=== PATIENT | female | born 1955 | race Caucasian/White ===

== ENCOUNTER → 2017-03-07 | Outpatient (CLI) | payer OTHER, MEDICARE ==
[~2017-03-07] MED LIST: ATOR-24 PO; CHOL1000 PO; CYAN10002 IM; HYDR-3983 PO; LEVO137T3 PO; LEVO150T PO; MAGN400T6 PO; NIAC500T7 PO; PANT40TA PO; SENNTAB23 PO; SERT-234 PO
[2017-03-07 13:58] VITALS: BP 117/70; PULSE 85; TEMP 37; O2SAT 96
--- NOTE | 2017-03-07 16:20 | Radiation Oncology Follow-Up ---
Radiation Oncology Follow-Up Date of Visit Mar 07, 2017. Reason For Visit Annual follow-up Radiation Completion Date finished 03-16-2013 Diagnosis (1) Infiltrating ductal carcinoma of breast Status: Resolved Onset Date: 12/14/2010 Permanent Comment: Abnormal left breast mammogram Biopsy positive for atypical epithelial cells suspicious for adenocarcinoma Status post left modified radical mastectomy and sentinel lymph node biopsy revealing ductal carcinoma 11/01/2010 Stage [id number] Dipti receptor negative, progesterone receptor negative, HER-2/nay negative Patient declined chemotherapy. She was caring for her elderly father. Chest wall recurrence status post excision 03/16/2012, metastatic carcinoma Systemic chemotherapy Development of chest wall recurrence while under chemotherapy Status post completion of radiation therapy 03/16/2013 received 6660 cGy Last Edited By: Alysha Cazares on Dec 09, 2014 10:44 Interim History She's been doing well over this past year. She has noticed no changes of the chest wall. She is found no masses and has no discomfort. There are no changes of the axilla. She has had no swelling of her arm. She is up-to-date on mammography for the unaffected breast. She is also had recheck CT scans of the chest abdomen and pelvis. She has noted no bone discomfort. She has ongoing pain issues of her back and legs. She is getting injections every 4 months through a pain clinic. Her appetite is good and she has had a 10 pound weight gain over this past year. Allergies Coded Allergies: No Known Allergies (Unverified , `, 01/15/15) Home Medications Scheduled Atorvastatin (Lipitor), 40 MG PO QAM Cholecalciferol (Vitamin D3), 1 TAB PO QAM Cyanocobalamin (Vitamin B-12 Inj), 1,000 MCG IM MONTHLY Levothyroxine Sodium (Levothyroxine Sodium), 137 MCG PO DAILY Magnesium Oxide (Mag-Ox), 400 MG PO QAM Niacinamide (Niacin), 500 MG PO HS Pantoprazole (Protonix), 40 MG PO QAM Sertraline (Zoloft), 100 MG PO QAM Review of Systems Gastrointestinal: Symptoms: WNL Oral: Symptoms: No Problems Respiratory: Symptoms: Moist Cough, SOB With Exertion Urinary: Symptoms: Incontinence, Frequency Comments: stress incontinence , denies pain or burning Skin: Symptoms: No Problems Other Skin Symptoms: " dry " Breast: Right Upper Arm Measurement: 34.0 Right Mid Arm Measurement: 27.0 Right Wrist Measurement: 17.4 Left Upper Arm Measurement: 33.0 Left Mid Arm Measurement: 27.0 Left Wrist Measurement: 18.3 Arm Dominence: Right Cosmetic Comments: N/ A was treated to the chest wall Physical Exam Vital Signs Date Time Temp Pulse Resp B/P (MAP) Pulse Ox O2 Delivery O2 Flow Rate FiO2 03/07/17 13:58 37.0 85 20 117/70 96 Fatigue: None General Appearance: no apparent distress Eyes: normal inspection, EOMI ENT: normal ENT inspection, hearing grossly normal Neck: no adenopathy, thyroid normal Respiratory/Chest: lungs clear, no respiratory distress, no accessory muscle use Breast: Breast examination reveals status post mastectomy on the left. There no masses or tenderness and no axillary adenopathy. There is no telangiectasia. Using the [place] score cosmesis she has a a fair outcome. Right breast showed no masses or tenderness no axillary adenopathy. Cardiovascular: regular rate, rhythm, no gallop, + systolic murmur (2/6 systolic murmur) Abdomen: non tender Extremities: no pedal edema Neurologic/Psychiatric: no motor/sensory deficits, alert, normal mood/affect Skin: warm/dry Pain Management Patient Reports Pain: Yes Side: Bilateral Pain Location: back and legs Patient Preferred Pain Scale: 0 - 10 Initial Pain Intensity: 5.5 Pain Management Plan She has chronic pain and is seen pain management and gets back injections. Laboratory Laboratory Results: not applicable Pathology Pathology Results: not applicable Imaging Imaging Studies: were reviewed, and pertinent findings noted below Imaging Comments She had CT of the chest abdomen and pelvis 01/11/2017 at [facility]. Impression is no acute process and no evidence of metastatic disease. Stable postsurgical changes of the left mastectomy. Hepatic steatosis. Exophytic uterine fibroids. She had a mammogram of the right breast. Which showed no evidence of malignancy BI-RADS Category 2. This was performed on 01/11/2017. She also had a chest CT which showed no metastatic disease. Assessment & Plan Plan: The CAT scans and mammogram were all reviewed. She is aware of the findings. We discussed the steatosis of the liver. She will try to do better with weight control. She'll continue regular follow-up with medical oncology and her primary care physician. We asked her to return to our office in 1 year. She may call if she has any questions or concerns in the interim. Total Time In Follow-Up I spent 20 minutes speaking to the patient performing examination. I spent 15 minutes reviewing information in completing this note. Copy To Jose Valero M.D.; Nadir Williamson D.O. Problem Qualifiers (1) Infiltrating ductal carcinoma of breast: Laterality: left Qualified Codes: C50.912 - Malignant neoplasm of unspecified site of left female breast
== END | disposition home or self-care (01) ==
LOC: C.ONC 13:40
PROVIDERS: ATTEND Physician Assistant Medical
DX: Z08 Encounter for follow-up examination after completed treatment for malignant neoplasm (principal); Z92.3 Personal history of irradiation; Z85.3 Personal history of malignant neoplasm of breast

== ENCOUNTER 2023-03-12 08:25 | Inpatient (IN) ==
--- NOTE | 2023-03-06 11:21 | Anesthesiology Consultation ---
Date of Service March 06, 2023 Assessment & Plan (1) Encounter for pre-operative examination: Plan - awaiting surgeon ordered testing, patient plans to have these completed at [facility] tomorrow per Kiara with surgeon's office. - left arm restriction. 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 Chart Review Chart Review: Pending: Refer to Additional Notes / Consult section and Patient NOT seen in Pre Admission Testing History Surgery Operation Date: 03/12/23 10:05 Proposed Procedures p L3-5 Revision Decompression and Fusion, Possible Kyphoplasty Versus Cementing Hardware, Extending Hardware to Pelvis Spinal Cord Monitoring - Candido Booker DO Height/Weight Height: 5 ft 6 in Weight: 85.275 kg Allergies Allergy/AdvReac Type Severity Reaction Status Date / Time No Known Allergies Allergy Unknown ` Verified 03/06/23 10:20 Medications Home Medications Medication Instructions Recorded Confirmed Last Taken albuterol sulfate 90 mcg/actuation 1 inh inhalation Q4H PRN sob 06/15/21 03/06/23 07/26/21 03:30 aerosol inhaler cholecalciferol (vitamin D3) 50 50 mcg PO QAM 06/15/21 03/06/23 12/13/22 09:00 mcg (2,000 unit) capsule (Vitamin D3) magnesium 500 mg tablet 500 mg PO QAM 06/15/21 03/06/23 12/13/22 23:45 niacin 500 mg tablet,extended 500 mg PO HS 06/15/21 03/06/23 12/13/22 23:45 release 24 hr (Niaspan) pantoprazole 40 mg tablet,delayed 40 mg PO QAM 06/15/21 03/06/23 12/13/22 09:00 release pregabalin 25 mg capsule (Lyrica) 25 mg PO TID 06/15/21 03/06/23 12/13/22 23:45 atorvastatin 40 mg tablet 40 mg PO QAM 12/08/22 03/06/23 12/13/22 09:00 capecitabine 500 mg tablet (Xeloda) 2,000 mg PO BID 12/08/22 03/06/23 12/13/22 21:00 cyclobenzaprine 5 mg tablet 10 mg PO Q8 12/08/22 03/06/23 12/13/22 09:00 docusate sodium 100 mg capsule 100 mg PO QAM 12/08/22 03/06/23 12/13/22 09:00 (Colace) guaifenesin 600 mg tablet, 600 mg PO Q12H 12/08/22 03/06/23 12/13/22 23:45 extended release 12 hr (Mucinex) hydrocodone 10 mg-acetaminophen 1 tab PO QID 12/08/22 03/06/23 12/13/22 23:30 325 mg tablet levothyroxine 200 mcg tablet 200 mcg PO QAM 12/08/22 03/06/23 12/13/22 09:00 levothyroxine 50 mcg tablet 50 mcg PO QAM 12/08/22 03/06/23 12/13/22 09:00 ondansetron 8 mg disintegrating 8 mg PO QAM 12/08/22 03/06/23 12/13/22 09:00 tablet sertraline 150 mg capsule 150 mg PO QAM 12/08/22 03/06/23 12/13/22 09:00 umeclidinium 62.5 mcg-vilanterol 1 inh inhalation QAM 12/08/22 03/06/23 12/13/22 09:00 25 mcg/actuation powdr for inhalation (Anoro Ellipta) doxylamine succinate 25 mg tablet 25 mg PO HS PRN Insomnia 12/14/22 03/06/23 Unknown oxycodone 5 mg tablet 5 mg PO Q6H PRN pain #30 tabs 12/15/22 03/06/23 Unknown oxycodone 5 mg tablet 5 mg PO Q6H PRN pain #30 tabs 12/18/22 03/06/23 Unknown Past Medical History Medical History Anxiety Smoker smokes 1 PPD Obesity Limb alert care status LUE restriction History of blood transfusion 2011 Osteoarthritis Chronic pain Hiatal hernia GERD (gastroesophageal reflux disease) Hypothyroidism Peripheral neuropathy Hyperlipidemia Lung cancer Metastatic lung cancer- dx'ed 2015 and then again 10/2020--uses daily inhaler, rarely uses rescue inhaler Mediastinal adenopathy Breast cancer -Initially dx'ed 2010- s/p left sided mastectomy -Left sided chest wall recurrence 2012- s/p side excision - Metastatic infiltrating ductal carcinoma to mediastinum and lungs in 2016status post chemo. - Was on surveillance until 08/2020- found to have recurrent metastatic pulmonary disease dx'ed by [facility] 10/2020. S/p chemo Past Family History Family History Other Breast cancer No family history of adverse response to anesthesia Prostate cancer Past Surgical History Surgical History S/P spinal surgery History of surgery Excision of left chest wound for nonhealing and infection. Dr. Briggs 07/26/2021 History of removal of Port-a-Cath Port removal. Dr. Briggs History of mastectomy left with lymph node removal History of bilateral tubal ligation S/P epidural steroid injection History of bronchoscopy History of colonoscopy History of cataract surgery bilateral Social History Smoking Status: Current some day smoker tobacco type: cigarettes Smoking cigarettes per day: smoking occasionally - advised Do You Dip or Chew Tobacco: No Hx Alcohol Use: No Hx Substance Use: No substance use type: does not use Testing Laboratory Results Type and screen can be used for 90 days per blood bank. Surgeon's office notified last urine culture was 11/2022 if surgeon wants updated urine culture- to Dr. Booker's determination. Kiara advised Dr. Booker did not need updated medical clearance. Electrocardiogram Date: 12/08/22 NSR, rate 78 bpm Chest X-Ray Date: 12/16/22 *1view* Cardiomegaly with mild interstitial thickening which favors pulmonary edema.
[~2023-03-12 08:25] MED LIST changes: +ACETAMINOPHEN 500 MG TAB PO SCH; -ATOR-24 PO; -CHOL1000 PO; -CYAN10002 IM; +CeleBREX 200 MG CAP PO SCH; +GABAPENTIN 300 MG CAP PO SCH; -HYDR-3983 PO; -LEVO137T3 PO; -LEVO150T PO; +LR 15ML/HR IV SCH; +LR 60ML/HR IV SCH; -MAGN400T6 PO; -NIAC500T7 PO; -PANT40TA PO; -SENNTAB23 PO; -SERT-234 PO; +ceFAZolin 2000MG 2,000 MG/15 ML SYR IV SCH
[2023-03-12] MEDS ORDERED: ONDANSETRON INJ 2 MG/ML 2 ML VIAL IV PRN ×2 (08:59→14:40)
[2023-03-12] MEDS ORDERED: ePHEDrine sulfate 50 MG/ML AMP IV PRN (08:59)
[2023-03-12] MEDS ORDERED: ATROPINE SULFATE 0.1 MG/ML 10ML SYR IV PRN (08:59)
[2023-03-12] MEDS ORDERED: PROMETHAZINE HCL 6.25 MG in SODIUM CHLORIDE 0.9% 50 ML IV PRN (08:59)
[2023-03-12] MEDS ORDERED: MIDAZOLAM HCL 1 MG/ML 2ML VIAL ONE (09:05)
[2023-03-12] MEDS ORDERED: PROPOFOL IV EMULSION 10 MG/ML 20 ML VIAL IV ONE (09:05)
[2023-03-12] MEDS ORDERED: ROCURONIUM BROMIDE 10 MG/ML 5 ML VIAL IV ONE ×2 (09:05→11:04)
[2023-03-12] MEDS ORDERED: DEXAMETHASONE SOD INJ 4 MG/ML VIAL ONE (09:05)
[2023-03-12] MEDS ORDERED: ONDANSETRON INJ 2 MG/ML 2 ML VIAL ONE (09:05)
[2023-03-12] MEDS ORDERED: LIDOCAINE 2% 2 ML VIAL/AMP(20MG/ML) INFIL ONE (09:05)
[2023-03-12] MEDS ORDERED: fentaNYL citrate PF 100 MCG/2 ML VIAL ONE (09:06)
--- OUTSIDE RECORDS SUMMARY | 2023-03-12 09:07 | External Medical Summary | Summary of Care ---
Author Name Unknown Organization [facility] Address [address] [place] [address] Phone [phone] Care Team Providers Care Switch Tender Name Role Phone Susana Carey DO Primary Care Provider [phone] Encounter Details Date Type Department Care Team (Late st Contact Info) Description 03/09/2023 Orders Only Family Practice [place] [address] [place] [address] Susana Carey DO [address] [facility] [place] [address] Allergies No known active allergiesdocumented as of this encounter (statuses as of 03/09/2023) Medications Medication Sig Dispensed Refills Start Date End Date Status Oyster Shell Calcium w/D 500-200 MG-UNIT Oral Tablet Take 1 Tablet by mouth in the morning. 0 10/27/2021 Active Capecitabine 500 MG Oral Tablet (Xeloda) Take 4 Tablets by mouth in the morning and 4 Tablets before bedtime. 0 Active Niacin ER (Antihyperlipidemic) 500 MG Oral Tablet Extended Release (Niaspan) Take 1 Tablet by mouth in the morning. 0 Active Ondansetron HCl 8 MG Oral Tablet (Zofran) Take 1 Tablet by mouth every 8 hours as needed. 0 12/01/2021 Active Pregabalin 25 MG Oral Capsule (Lyrica) Take 1 Capsule by mouth in the morning and 1 Capsule at noon and 1 Capsule before bedtime. 0 11/14/2021 Active Doxylamine Succinate (Sleep) 25 MG Oral Tablet Take 1 Tablet by mouth at bedtime as needed. 0 Active Vitamin D3 10 MCG (400 UNIT) Oral Tablet (Cholecalciferol) Take 5 Tablets by mouth in the morning. 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 30 Each 11 12/28/2021 Active Vitamin B12 1000 MCG Oral Tablet Extended Release Take 2 Tablets by mouth. 0 Active HYDROcodone-Acetamin ophen 10-325 MG Oral Tablet Take 1 Tablet by mouth 3 times a day as needed. 0 06/08/2022 Active Sertraline HCl 50 MG Oral Tablet (Zoloft) Take 1 Tablet by mouth in the morning. Take with 100 mg tablet. 30 Tablet 11 07/04/2022 Active Atorvastatin Calcium 40 MG Oral Tablet (Lipitor)Indications :Hyperlipidemia Take 1 Tablet by mouth in the morning. 90 Tablet 3 08/04/2022 Active Pantoprazole Sodium 40 MG Oral Tablet Delayed Release (Protonix)Indication s:Gastroesophageal reflux disease Take 1 Tablet by mouth in the morning. 90 Tablet 1 08/25/2022 Active Levothyroxine Sodium 50 MCG Oral Tablet (Levoxyl) Take 1 Tablet by mouth in the morning. (at least 30 min prior to breakfast or other meds). 30 Tablet 11 11/17/2022 Active Albuterol Sulfate HFA 108 (90 Base) MCG/ACT Inhalation Aerosol SolutionIndications: COPD, 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) Inhale 2 Puffs by mouth every 4 hours as needed for Cough. 18 g 3 11/28/2022 Active Furosemide 20 MG Oral Tablet Take 1 Tablet by mouth in the morning. 0 01/23/2022 Active Cyclobenzaprine HCl 10 MG Oral Tablet (Flexeril) Take 1 Tablet by mouth in the morning and 1 Tablet at noon and 1 Tablet before bedtime. 0 Active Sertraline HCl 100 MG Oral Tablet (Zoloft)Indications: Anxiety state Take 1 Tablet by mouth in the morning. Taking with the 50 mg, for a total of 150 mg daily. 90 Tablet 1 01/22/2023 Active Magnesium Oxide 400 MG Oral TabletIndications:Hy pothyroidism TAKE ONE TABLET BY MOUTH TWICE A DAY (MORNING AND BEFORE BEDTIME) 60 Tablet 3 02/06/2023 Active Mucus Relief 600 MG Oral Tablet Extended Release 12 Hour (guaiFENesin ER)Indications:COPD, 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) TAKE ONE TABLET BY MOUTH EVERY MORNING AND ONE TABLET BEFORE BEDTIME. TAKE WITH PLENTY OF WATER. DO NOT CUT,CRUSH OR CHEW 60 Tablet 2 02/16/2023 Active Levothyroxine Sodium 200 MCG Oral Tablet (Levoxyl)Indications :Hypothyroidism, unspecified type TAKE ONE TABLET BY MOUTH EVERY MORNING (AT LEAST 30 MINUTES PRIOR TO BREAKFAST OR OTHER MEDICATIONS) 30 Tablet 3 03/02/2023 Active documented as of this encounter (statuses as of 03/09/2023) Active Problems Problem Noted Date Diagnosed Date Macrocytic anemia 12/11/2022 Mass of parotid gland 12/11/2022 Mediastinal adenopathy 12/11/2022 Port-A-Cath in place 12/11/2022 Warthin's tumor 07/04/2022 Hyperlipidemia 12/28/2021 Hypothyroidism 12/28/2021 Vitamin D deficiency 12/28/2021 Vitamin B 12 deficiency 12/28/2021 Tobacco use disorder 12/28/2021 Degeneration of lumbar or lumbosacral interverte bral disc 12/28/2021 Anxiety state 12/28/2021 COPD, severity to be determined 12/28/2021 Metastatic breast cancer 12/28/2021 Osteopenia of multiple sites 10/25/2021 Gastroesophageal reflux disease 08/10/2016 Lumbar radiculopathy 09/09/2014 Multiple sclerosis 08/12/2012 Malignant neoplasm of lower-inner quadrant of fe male breast 12/20/2011 documented as of this encounter (statuses as of 03/09/2023) Immunizations Name Administration Dates Next Due COVID-19 mRNA, LNP-s, No Pre serve, 2-Dose Series ([employer]) 06/09/2021,01/14/2021,06/02/2020,05/12 Pneumococcal Conjugate Vacc, 13 Valent (Prevnar) 12/24/2015 Pneumococcal Conjugate Vacci ne, 20-valent ([id number]) 07/13/2022 Pneumococcal Polysaccharide PPV23 (Pneumovax) 04/16/2017,2011 Seasonal Influenza Virus Vac cine, Unspecified Formulation 12/20/2021,12/15/2020 Seasonal Influenza, QUAD, wi th Preserv, 6 mons & Above, 0.5 mL, IM 12/15/2020 Seasonal Influenza, Quadriva lent Hd (Fluzone Hd) 12/11/2022 Seasonal Influenza, Quadrivalent, ID 11/18/2019, 11/25/2018,10/31/2017 Seasonal Influenza, Split, I IV3, With Preserve, Inj 11/26/2020,10/24/2016,11/17/2015,11/20,11/20/2013,10/27/2012,11/27/2011 ,11/18/2010,12/09/2009,02/21/2005 Seasonal Influenza, Trivalen t, Adjuvanted, 65+ yrs 12/20/2021 TDAP (age 10 and older)(Boostrix) 2011 Varicella Zoster Vaccine (Adult) 11/27/2011 Zoster Vaccine Recombinant (Shingrix) 07/16/2020 ,03/15/2020 documented as of this encounter Social History Tobacco Use Types Packs/Day Years Used Date Smoking Tobacco: Every Day Cigarettes 1 Smokeless Tobacco: Never Alcohol Use Standard Drinks/Week Comments Not Currently 0 (1 standard drink = 0.6 oz pur e alcohol) Sex and Gender Information Value Date Recorded Sex Assigned at Not on file Gender Identity Not on file Sexual Orientation Not on file Job Start Date Occupation Industry Not on file Not on file Not on file documented as of this encounter Plan of Treatment Upcoming Encounters Date Type Department Care Team (Late st Contact Info) Description 06/11/2023 6:00 PM EDT Office Visit Family Practice [address] [place] [address] Wilmar Delgadillo PA-C [address] [place] [address] Health Maintenance Due Date Last Done Comments DISCUSS TOBACCO CESSATION (REFER TO SMARTSET #[id number]) 1955 Depression Screening 1967 Alpha-1 Antitrypsin 05/04/1973 Cologuard 05/04/2000 Colonoscopy 05/04/2000 Colorectal Cancer Screening 05/04/2000 Fecal Occult Blood Test 05/04/2000 Sigmoidoscopy 05/04/2000 DTaP,Tdap,and Td Vaccines (2 - Td or Tdap) 05/04/2021 2011 *COPD SEVERITY VERIFIED BY PFT 12/30/2021 COVID-19 Vaccine (2022- season) 2022 06/09/2021, 01/14/2021, 06/02/2020, Additional history exists O2 ASSESSMENT COMPLETED IN PAST YEAR FOR COPD 12/12/2023 12/11/2022 TSH 12/22/2023 12/21/2022, 02/2022, 07/20/2022, Additional history exists Mammogram 03/05/2024 03/05/2023, 01/27, 01/14/2018, Additional history exists Diabetes Screening 03/07/2026 03/07/2023, 1 02/28/2022, 11/24/2022, Additional history exists Lipid Panel 07/21/2027 07/20/2022, 12/27, 09/02/2020 DXA Scan 10/26/2031 10/25/2021 Zoster Vaccines Completed 07/16/2020, 02/26, 11/27/2011 Pneumococcal Vaccine: 65+ Years Completed 07/13/2022, 04/16/2017, 12/24/2015, Additional history exists Influenza Vaccine (FLU shot) Completed , 12/20/2021, 12/20/2021, Additional history exists GARDASIL-HPV IMMUNIZATION SERIES Aged Out No longer eligible based on patient's age to complete this topic Hepatitis B Aged Out No longer eligi ble based on patient's age to complete this topic MENINGOCOCCAL (MENACTRA/MENVEO) Aged Out No longer eligible based on patient's age to complete this topic documented as of this encounter Medical Devices Not on filedocumented as of this encounter Procedures Procedure Name Priority Date/Time Associated Diagnosis Comments XR CHEST 2 VIEWS Routine 03/07/2023 documented in this encounter Results * XR CHEST 2 VIEWS (03/07/2023) Anatomical Region Laterality Modality Chest Other 03/07/2023 History Per Patient RADIOLOGY (RAD GENER AL) documented in this encounter Care Teams Switch Tender Relationship Specialty Start Date End Date Susana Carey DO [address] [facility] [place] [address] PCP - General Family Medicine 12/28/21 documented as of this encounter
--- OUTSIDE RECORDS SUMMARY | 2023-03-12 09:07 | External Medical Summary | Summary of Care ---
Author Name Unknown Organization [facility] Address [address] [facility] [place] [address] Phone [phone] Care Team Providers Care Control Systems Technician Name Role Phone Susana Carey DO Primary Care Provider [phone]- [phone] Encounter Details Date Type Department Care Team (Late st Contact Info) Description 03/07/2023 Result Scan Unspecified Department <No scans attached> Allergies No known active allergiesdocumented as of this encounter (statuses as of 03/08/2023) Medications Medication Sig Dispensed Refills Start Date [...] MCG/INH Inhalation Aerosol Powder Breath Activated (umeclidinium-vilant stephani)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: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, 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) Inhale [...] as of this encounter (statuses as of 03/08/2023) Active Problems Problem Noted Date Diagnosed Date [...] as of this encounter (statuses as of 03/08/2023) Immunizations Name Administration Dates Next Due COVID-19 mRNA, LNP-s, No Pre serve, 2-Dose Series ([employer]) 06/09/2021,01/14/2021,06/02/2020,05/12 Pneumococcal Conjugate Vacc, 13 Valent (Prevnar) 12/24/2015 Pneumococcal Conjugate Vacci ne, 20-valent ([id number]) 07/13/2022 Pneumococcal Polysaccharide PPV23 (Pneumovax) 04/16/2017,2011 Seasonal [...] 6:00 PM EDT Office Visit [facility] [address] [place] [address] Wilmar Delgadillo PA-C [address] [place] [address] Health Maintenance Due Date Last Done Comments DISCUSS TOBACCO CESSATION (REFER TO SMARTSET #[id number]) 1955 Depression Screening 1967 Alpha-1 Antitrypsin 05/04/1973 Cologuard 05/04/2000 Colonoscopy 05/04/2000 Colorectal Cancer Screening 05/04/2000 Fecal Occult Blood Test 05/04/2000 Sigmoidoscopy 05/04/2000 DTaP,Tdap,and Td Vaccines (2 - Td or Tdap) 05/04/2021 2011 *COPD SEVERITY VERIFIED BY PFT 12/30/2021 COVID-19 Vaccine ( season) 2022 06/09/2021, 01/14/2021, 06/02/2020, Additional history exists O2 ASSESSMENT COMPLETED IN PAST YEAR FOR COPD 12/12/2023 12/11/2022 TSH 12/22/2023 12/21/2022, 09/0 02/2022, 07/20/2022, Additional history exists Mammogram 03/05/2024 03/05/2023, 12/2 02/2021, 01/14/2018, Additional history exists Diabetes Screening 03/07/2026 [...] Procedure Name Priority Date/Time Associated Diagnosis Comments OUTSIDE LAB RESULTS 03/07/2023 documented in this encounter Results * OUTSIDE LAB RESULTS (03/07/2023) 03/07/2023 No Physician Data Unknown LABORATORY documented in this encounter Care Teams Control Systems Technician Relationship Specialty Start Date End Date Susana Carey DO [address] [facility] [place] [address] PCP - General Family Medicine 12/28/21 documented as of this encounter
--- OUTSIDE RECORDS SUMMARY | 2023-03-12 09:08 | External Medical Summary | Summary of Care ---
Author Name Unknown Organization [facility] Address [address] [place] [address] Phone [phone] Care Team Providers Care Clip Loading Machine Feeder Name Role Phone Susana Carey DO Primary Care Provider +1- [phone] Reason for Visit * Reason Onset Date Comments Medication Question 01/22/2023 Encounter Details Date Type Department Care Team (Late st Contact Info) Description 01/22/2023 Telephone Family Practice [address] [place] [address] Susana Carey DO [address] [place] [address] Medication Question Allergies No known active allergiesdocumented as of this encounter (statuses as of 01/22/2023) Medications Medication Sig Dispensed Refills Start Date End Date Status Oyster Shell Calcium w/D 500-200 MG-UNIT Oral Tablet Take 1 Tablet by mouth in the morning. 0 10/27/2021 Active Capecitabine 500 MG Oral Tablet (Xeloda) Take 4 Tablets by mouth in the morning and 4 Tablets before bedtime. 0 Active Niacin ER (Antihyperlipidem ic) 500 MG Oral Tablet Extended Release (Niaspan) [...] 62.5-25 MCG/INH Inhalation Aerosol Powder Breath Activated (umeclidinium-denisha anterol)Indicatio ns:COPD, 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 30 Each 11 12/28/2021 Active Magnesium Oxide 400 MG Oral TabletIndications :Hypothyroidism Take 1 Tablet by mouth in the morning and 1 Tablet before bedtime. 60 Tablet 3 06/13/2022 Active Vitamin B12 1000 MCG Oral Tablet Extended Release Take 2 Tablets by mouth. 0 Active HYDROcodone-Aceta minophen 10-325 MG Oral Tablet Take 1 Tablet by mouth 3 times a day as needed. 0 06/08/2022 Active Sertraline HCl 50 MG Oral Tablet (Zoloft) Take 1 Tablet by mouth in the morning. Take with 100 mg tablet. 30 Tablet 11 07/04/2022 Active Atorvastatin Calcium 40 MG Oral Tablet (Lipitor)Indicati ons:Hyperlipidemi a Take 1 Tablet by mouth in the morning. 90 Tablet 3 08/04/2022 Active Pantoprazole Sodium 40 MG Oral Tablet Delayed Release (Protonix)Indicat ions:Gastroesopha geal reflux disease Take 1 Tablet by mouth in the morning. 90 Tablet 1 08/25/2022 Active Mucus Relief 600 MG Oral Tablet Extended Release 12 Hour (guaiFENesin ER)Indications:CO PD, 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) TAKE ONE TABLET BY MOUTH EVERY MORNING AND ONE TABLET BEFORE BEDTIME. TAKE WITH PLENTY OF WATER. DO NOT CUT, CRUSH, OR CHEW. 60 Tablet 2 10/11/2022 Active Levothyroxine Sodium 50 MCG Oral Tablet (Levoxyl) Take 1 Tablet by mouth in the morning. (at least 30 min prior to breakfast or other meds). 30 Tablet 11 11/17/2022 Active Albuterol Sulfate HFA 108 (90 Base) MCG/ACT Inhalation Aerosol SolutionIndicatio ns:COPD, 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) Inhale 2 [...] and 1 Tablet before bedtime. 0 Active Levothyroxine Sodium 200 MCG Oral Tablet (Levoxyl)Indicati ons:Hypothyroidis m, unspecified type TAKE ONE TABLET BY MOUTH EVERY MORNING (AT LEAST 30 MINUTES PRIOR TO BREAKFAST OR OTHER MEDICATIONS) 30 Tablet 0 01/08/2023 Active Sertraline HCl 100 MG Oral Tablet (Zoloft)Indicatio ns:Anxiety state Take 1 Tablet by mouth in the morning. Taking with the 50 mg, for a total of 150 mg daily. 90 Tablet 1 01/22/2023 Active Sertraline HCl 100 MG Oral Tablet (Zoloft) Take 1 Tablet by mouth in the morning. Taking with 25 mg. 0 10/27/2021 01/22/2023 Discontinued (Refill) documented as of this encounter (statuses as of 01/22/2023) Active Problems Problem Noted Date Diagnosed Date [...] as of this encounter (statuses as of 01/22/2023) Immunizations Name Administration Dates Next Due COVID-19 mRNA, LNP-s, No Pre serve, 2-Dose Series ([employer]) 06/09/2021,01/14/2021,06/02/2020,05/12 Pneumococcal Conjugate Vacc, 13 Valent (Prevnar) 12/24/2015 Pneumococcal Conjugate Vacci ne, 20-valent ([id number]) 07/13/2022 Pneumococcal Polysaccharide PPV23 (Pneumovax) 04/16/2017,2011 Seasonal [...] on file documented as of this encounter Miscellaneous Notes * Telephone Encounter - Stephanie Sagastume LPN - 01/22/2023 10:31 AM EST I called the pt, she is taking a total of 150 mg daily. She has a bottle of the 50 mg, but she needs the 100 mg. Med pended, please sign. * Telephone Encounter - Pablo Sandoval PHARM Tech - 01/22/2023 10:03 AM EST Pt calling requesting the following medication below that is listed as "Historical". The following information was provided: Medication Name: Sertraline Strength: 100 mg Directions: Take 1 tab daily. Preferred Quantity: 90 day supply with refill. Previous Prescriber: ALLI Preferred Pharmacy: [facility] Pt is out of medication.Says she takes 150 mg daily now. Please review and approve if appropriate. Thank You, Pablo Sandoval [facility] [facility] (Formerly [facility]pharm[facility]) 01/22/2023, 10:04 AM documented in this encounter Plan of Treatment Upcoming Encounters Date Type Department Care Team (Late st Contact Info) Description 06/11/2023 6:00 PM EDT Office Visit Family Practice [address] [place] [address] Wilmar Delgadillo PA-C [address] [place] [address] Health Maintenance Due Date Last Done Comments DISCUSS TOBACCO CESSATION (REFER TO SMARTSET #6235) 1955 Depression Screening 1967 Alpha-1 Antitrypsin 05/04/1973 Cologuard 05/04/2000 Colonoscopy 05/04/2000 Colorectal Cancer Screening 05/04/2000 Fecal Occult Blood Test 05/04/2000 Sigmoidoscopy 05/04/2000 DTaP,Tdap,and Td Vaccines (2 - Td or Tdap) 05/04/2021 2011 *COPD SEVERITY VERIFIED BY PFT 12/30/2021 COVID-19 Vaccine (2022- season) 2022 06/09/2021, 01/14/2021, 06/02/2020, Additional history exists Mammogram 02/15/2023 02/15/2022, 12/27, 01/14/2018, Additional history exists TSH 10/28/2023 10/27/2022, 06/27, 01/05/2022, Additional history exists O2 ASSESSMENT COMPLETED IN PAST YEAR FOR COPD 12/12/2023 12/11/2022 Diabetes Screening 11/24/2025 11/24/2022, 0 11/17/2022, 11/01/2022, Additional history exists Lipid Panel 07/21/2027 07/20/2022, [...] Not on filedocumented as of this encounter Visit Diagnoses Diagnosis Anxiety state- Primary Anxiety state, unspecified documented in this encounter Care Teams Clip Loading Machine Feeder Relationship Specialty Start Date End Date Susana Carey DO [address] [facility] [place] [address] PCP - General Family Medicine 12/28/21 documented as of this encounter
--- OUTSIDE RECORDS SUMMARY | 2023-03-12 09:08 | External Medical Summary | Summary of Care ---
Author Name Unknown Organization [facility] Address [address] [place] [address] Phone [phone] Care Team Providers Care Cheese Blender Name Role Phone Susana Carey DO Primary Care Provider +1- [phone] Encounter Details Date Type Department Care Team (Late st Contact Info) Description 01/24/2023 Orders Only Family Practice [place] [facility] [address] [place] [address] Susana Carey DO [address] [place] [address] Allergies No known active allergiesdocumented as of this encounter (statuses as of 01/24/2023) Medications Medication Sig Dispensed Refills Start Date [...] MCG/INH Inhalation Aerosol Powder Breath Activated (umeclidinium-vilant stephani)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 30 Each 11 12/28/2021 Active Magnesium Oxide 400 MG Oral TabletIndications:Hy pothyroidism Take 1 Tablet by mouth in the [...] mg daily. 90 Tablet 1 01/22/2023 Active documented as of this encounter (statuses as of 01/24/2023) Active Problems Problem Noted Date Diagnosed Date [...] as of this encounter (statuses as of 01/24/2023) Immunizations Name Administration Dates Next Due COVID-19 mRNA, LNP-s, No Pre serve, 2-Dose Series ([employer]) 06/09/2021,01/14/2021,06/02/2020,05/12 Pneumococcal Conjugate Vacc, 13 Valent (Prevnar) 12/24/2015 Pneumococcal Conjugate Vacci ne, 20-valent ([id number]) 07/13/2022 Pneumococcal Polysaccharide PPV23 (Pneumovax) 04/16/2017,2011 Seasonal [...] Office Visit Family Practice [address] [place] [address] Wilmar Delgadillo PA-C [address] [place] [address] Health Maintenance Due Date Last Done Comments DISCUSS TOBACCO CESSATION (REFER TO SMARTSET #7658) 1955 Depression Screening 1967 Alpha-1 Antitrypsin 05/04/1973 Cologuard 05/04/2000 Colonoscopy 05/04/2000 Colorectal Cancer Screening 05/04/2000 Fecal Occult Blood Test 05/04/2000 Sigmoidoscopy 05/04/2000 DTaP,Tdap,and Td Vaccines (2 - Td or Tdap) 05/04/2021 2011 *COPD SEVERITY VERIFIED BY PFT 12/30/2021 COVID-19 Vaccine ( season) 2022 06/09/2021, 01/14/2021, 06/02/2020, Additional history exists Mammogram 02/15/2023 02/15/2022, 12/27, 01/14/2018, Additional history exists O2 ASSESSMENT COMPLETED IN PAST YEAR FOR COPD 12/12/2023 12/11/2022 TSH 12/22/2023 12/21/2022, 02/2022, 07/20/2022, Additional history exists Diabetes Screening 12/29/2025 12/29/2022, 0 11/24/2022, 11/17/2022, Additional history exists Lipid Panel 07/21/2027 07/20/2022, [...] Procedure Name Priority Date/Time Associated Diagnosis Comments CHEMISTRY-OUTSIDE Routine 12/29/2022 TSH Routine 12/21/2022 documented in this encounter Results * (ABNORMAL) CHEMISTRY-OUTSIDE (12/29/2022) Not all results display below - see scan for full detail OUTSIDE LAB (SEE SCANNED REPORT) Comment:SCAN INCLUDES - CBCD , CMP, MAGNESIUM CREATININE-OUTSID E LAB 0.80 0.40 - 1.50 MG/DL OUTSIDE LAB (SEE SCANNED REPORT) EGFR-OUTSIDE LAB 81 >=60 ML/MIN/1.7 3M2 OUTSIDE LAB (SEE SCANNED REPORT) POTASSIUM-OUTSIDE LAB 3.9 3.6 - 5.0 MMOL/L OUTSIDE LAB (SEE SCANNED REPORT) GLUCOSE-OUTSIDE LAB 114(A) 65 - 110 MG/DL OUTSIDE LAB (SEE SCANNED REPORT) HOURS FASTING OUTSID E LAB (SEE SCANNED REPORT) TRIGLYCERIDES-OUT SIDE LAB OUTSIDE LAB (SEE SCANNED REPORT) CHOLESTEROL-OUTSI DE LAB OUTSIDE LAB (SEE SCANNED REPORT) HDL-OUTSIDE LAB OUTS DANYA LAB (SEE SCANNED REPORT) CHOL/HDL RATIO-OUTSIDE LAB OUTSIDE LA B (SEE SCANNED REPORT) LDL (CALCULATED)-OUTS DANYA LAB OUTSIDE LAB (SEE SCANNED REPORT) LDL (DIRECT MEASURE)-OUTSIDE LAB OUTSIDE LAB (SEE SCANNED REPORT) HEMOGLOBIN, X3D-WBVSROP LAB OUTSIDE LAB (SEE SCANNED REPORT) PHOSPHORUS-OUTSID E LAB OUTSIDE LAB (SEE SCANNED REPORT) PTH-OUTSIDE LAB OUTS DANYA LAB (SEE SCANNED REPORT) MICROALBUMIN RATIO-OUTSIDE LAB OUTSIDE LA B (SEE SCANNED REPORT) PROTEIN, UA-OUTSIDE LAB OUTSIDE LAB (SEE SCANNED REPORT) HEMOGLOBIN-OUTSID E LAB 10.1(A) 12.0 - 16.0 GM/DL OUTSIDE LAB (SEE SCANNED REPORT) 12/29/2022 History Per Patient LABORATORY OUTSIDE LAB (SEE SCANNED REPORT) * (ABNORMAL) TSH (12/21/2022) TSH - OUTSIDE LAB 0.125(A) 0.410 - 4.670 MCIU/ML OUTSIDE LAB (SEE SCANNED REPORT) Blood Venous blood specimen / Unknown 12/21/2022 Catalina Strickland DO LAB BLOOD ORDERAB LES OUTSIDE LAB (SEE SCANNED REPORT) documented in this encounter Care Teams Cheese Blender Relationship Specialty Start Date End Date Susana Carey DO [address] [facility] [place] [address] PCP - General Family Medicine 12/28/21 documented as of this encounter
--- OUTSIDE RECORDS SUMMARY | 2023-03-12 09:08 | External Medical Summary | Summary of Care ---
Author Name Unknown Organization [facility] Address [address] [place] [address] Phone [phone] Care Team Providers Care Renewable Energy Division Manager Name Role Phone Susana Carey DO Primary Care Provider +1- [phone] Encounter Details Date Type Department Care Team (Late st Contact Info) Description 03/07/2023 Orders Only Family Practice [place] [address] [place] [address] Susana Carey DO [address] [facility] [place] [address] Allergies No known active allergiesdocumented as of this encounter (statuses as of 03/07/2023) Medications Medication Sig Dispensed Refills Start Date [...] MCG/INH Inhalation Aerosol Powder Breath Activated (umeclidinium-vilant stephani)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, 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) Inhale [...] as of this encounter (statuses as of 03/07/2023) Active Problems Problem Noted Date Diagnosed Date [...] as of this encounter (statuses as of 03/07/2023) Immunizations Name Administration Dates Next Due COVID-19 mRNA, LNP-s, No Pre serve, 2-Dose Series ([employer]) 06/09/2021,01/14/2021,06/02/2020,05/12 Pneumococcal Conjugate Vacc, 13 Valent (Prevnar) 12/24/2015 Pneumococcal Conjugate Vacci ne, 20-valent ([id number]) 07/13/2022 Pneumococcal Polysaccharide PPV23 (Pneumovax) 04/16/2017,2011 Seasonal [...] Office Visit Family Practice [address] [place] [address] Wilmar Delgadillo PA-C [address] [place] [address] Health Maintenance Due Date Last Done Comments DISCUSS TOBACCO CESSATION (REFER TO SMARTSET #2370) 1955 Depression Screening 1967 Alpha-1 Antitrypsin 05/04/1973 Cologuard 05/04/2000 Colonoscopy 05/04/2000 Colorectal Cancer Screening 05/04/2000 Fecal Occult Blood Test 05/04/2000 Sigmoidoscopy 05/04/2000 DTaP,Tdap,and Td Vaccines (2 - Td or Tdap) 05/04/2021 2011 *COPD SEVERITY VERIFIED BY PFT 12/30/2021 COVID-19 Vaccine (2022- season) 2022 06/09/2021, 01/14/2021, 06/02/2020, Additional history exists O2 ASSESSMENT COMPLETED IN PAST YEAR FOR COPD 12/12/2023 12/11/2022 TSH 12/22/2023 12/21/2022, 09/02/2022, 07/20/2022, Additional history exists Mammogram 03/07/2024 03/05/2023, 01/27, 01/14/2018, Additional history exists Diabetes Screening 12/29/2025 12/29/2022, [...] Procedure Name Priority Date/Time Associated Diagnosis Comments MAMMOGRAM SCREENING RIGHT Routine 03/05/2023 documented in this encounter Results * MAMMOGRAM SCREENING RIGHT (03/05/2023) Anatomical Region Laterality Modality Breast Right Other 03/05/2023 Susana Carey DO RAD MAMMOGRAPHY documented in this encounter Care Teams Renewable Energy Division Manager Relationship Specialty Start Date End Date Susana Carey DO [address] [facility] [place] [address] PCP - General Family Medicine 12/28/21 documented as of this encounter
--- OUTSIDE RECORDS SUMMARY | 2023-03-12 09:08 | External Medical Summary | Summary of Care ---
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 0 Active documented as of this encounter (statuses [...] mRNA, LNP-s, No Pre serve, 2-Dose Series ([employer]) 06/09/2021,01/14/2021,06/02/2020,05/12 Pneumococcal Conjugate Vacc, 13 Valent (Prevnar) 12/24/2015 Pneumococcal Conjugate Vacci ne, 20-valent ([id number]) 07/13/2022 Pneumococcal Polysaccharide PPV23 (Pneumovax) 04/16/2017,2011 Seasonal [...] Office Visit Family Practice [address] [place] [address] Wilmar Delgadillo PA-C [address] [place] [address] Health Maintenance Due Date Last Done Comments DISCUSS TOBACCO CESSATION (REFER TO SMARTSET #1690) 1955 Depression Screening 1967 Alpha-1 Antitrypsin 05/04/1973 [...] 12/21/2022, 09/0 02/2022, 07/20/2022, Additional history exists Diabetes Screening [...] Date/Time Associated Diagnosis Comments OUTSIDE LAB RESULTS 12/21/2022 documented in this encounter Results * OUTSIDE LAB RESULTS (12/21/2022) 12/21/2022 No Physician Data Unknown LABORATORY documented in this encounter Care Teams Image Consultant Relationship Specialty Start Date End Date Susana Carey DO [address] [facility] [place] [address] PCP - General Family Medicine 12/28/21 documented as of this encounter
--- OUTSIDE RECORDS SUMMARY | 2023-03-12 09:08 | External Medical Summary | Summary of Care ---
Author Name Unknown Organization [facility] Address [address] [facility] [place] [address] Phone [phone] Care Team Providers Care Supervisor Winter Name Role Phone Susana Carey DO Primary Care Provider +1- [phone] Reason for Visit * Reason Comments eRx-Medication Refill Encounter Details Date Type Department Care Team (Late st Contact Info) Description 03/01/2023 Refill Family Practice [place] [facility] [address] [place] [address] Susana Carey DO [address] [facility] [place] [address] Hypothyroidism, unspecified type Allergies No known active allergiesdocumented as of this encounter (statuses as of 03/02/2023) Medications Medication Sig Dispensed Refills Start Date [...] 01/22/2023 Active Magnesium Oxide 400 MG Oral TabletIndications :Hypothyroidism TAKE ONE TABLET BY MOUTH TWICE A [...] OTHER MEDICATIONS) 30 Tablet 3 03/02/2023 Active Levothyroxine Sodium 200 MCG Oral Tablet (Levoxyl)Indicati ons:Hypothyroidis m, unspecified type TAKE ONE TABLET BY MOUTH EVERY MORNING (AT LEAST 30 MINUTES PRIOR TO BREAKFAST OR OTHER MEDICATIONS) 30 Tablet 0 01/08/2023 Discontinued documented as of this encounter (statuses as of 03/02/2023) Active Problems Problem Noted Date Diagnosed Date [...] as of this encounter (statuses as of 03/02/2023) Immunizations Name Administration Dates Next Due COVID-19 mRNA, LNP-s, No Pre serve, 2-Dose Series ([employer]) 06/09/2021,01/14/2021,06/02/2020,05/12 Pneumococcal Conjugate Vacc, 13 Valent (Prevnar) 12/24/2015 Pneumococcal Conjugate Vacci ne, 20-valent ([id number]) 07/13/2022 Pneumococcal Polysaccharide PPV23 (Pneumovax) 04/16/2017,2011 Seasonal [...] encounter Miscellaneous Notes * Telephone Encounter - Radha Garza, [facility] - 03/02/2023 1:47 PM ESTSigned Prescriptions: Disp Refills Levothyroxine Sodium 200 MCG Oral Tablet (*30 Tab*3 Sig: TAKE ONE TABLET BY MOUTH EVERY MORNING (AT LEAST 30 MINUTES PRIOR TO BREAKFAST OR OTHER MEDICATIONS)Authorizing Provider: SUSANA CAREY User: RADHA GARZA * Telephone Encounter - Radha Garza [facility] - 03/02/2023 1:41 PM EST Refills approved until upcoming OV -- per chart review, 50 mcg dose was added to levothyroxine 200 mcg on 11/17/22. Pt was instructed to get repeat labs and outside labs input from 12/21 - TSH low, but no free T4 resulted. Did you pend patient's preferred pharmacy and medication before forwarding?yes Pharmacy: [facility] [address] [place] [address] [place] Pending Prescriptions: Disp Refills Levothyroxine Sodium 200 MCG Oral Tablet *30 Tab*3 Sig: TAKE ONE TABLET BY MOUTH EVERY MORNING (AT LEAST 30 MINUTES PRIOR TO BREAKFAST OR OTHER MEDICATIONS) Last Visit: 07/04/2022 (in office), Visit date not found (telemedicine) Next Visit: 06/11/2023 If no future appointments scheduled, and last appointment is greater than a year ago, please schedule patient for a follow-up appointment Last date the medication was ordered: 01/08/23 Is this request for a controlled substance?No Urine Drug Screen:No results found for this or any previous visit. Patient Phone Numbers Labs: Lab Results Component Value Date/Time CREAT 0.80 12/29/2022 12:00 AM POTASSIUM 3.9 12/29/2022 12:00 AM TSH 0.125 (A) 12/21/2022 12:00 AM TSH 5.25 (A) 01/05/2022 12:00 AM LDLCALC 51 07/20/2022 12:00 AM LDLCALC 31 01/05/2022 12:00 AM ALT 31 01/05/2022 12:00 AM HGBA1C 5.9 (A) 07/20/2022 12:00 AM HGBA1C 6.0 (A) 2021 08:53 AM documented in this encounter Plan of Treatment Upcoming Encounters Date Type Department Care Team (Late st Contact Info) Description 06/11/2023 6:00 PM EDT Office Visit Family Practice [address] [place] [address] Wilmar Delgadillo PA-C [address] [place] [address] Health Maintenance Due Date Last Done Comments DISCUSS TOBACCO CESSATION (REFER TO SMARTSET #9322) 1955 Depression Screening 1967 Alpha-1 Antitrypsin 05/04/1973 [...] as of this encounter Visit Diagnoses Diagnosis Hypothyroidism, unspecified type documented in this encounter Care Teams Supervisor Winter Relationship Specialty Start Date End Date Susana Carey DO [address] [facility] [place] [id number] PCP - General Family Medicine 12/28/21 documented as of this encounter
--- OUTSIDE RECORDS SUMMARY | 2023-03-12 09:08 | External Medical Summary | Summary of Care ---
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) Inhale [...] mRNA, LNP-s, No Pre serve, 2-Dose Series ([employer]) 06/09/2021,01/14/2021,06/02/2020,05/12 Pneumococcal Conjugate Vacc, 13 Valent (Prevnar) 12/24/2015 Pneumococcal Conjugate Vacci ne, 20-valent ([id number]) 07/13/2022 Pneumococcal Polysaccharide PPV23 (Pneumovax) 04/16/2017,2011 Seasonal [...] Office Visit Family Practice [address] [place] [address] Wilmar Delgadillo PA-C [address] [place] [address] Health Maintenance Due Date Last Done Comments DISCUSS TOBACCO CESSATION (REFER TO SMARTSET #7393) 1955 Depression Screening 1967 Alpha-1 Antitrypsin 05/04/1973 [...] Priority Date/Time Associated Diagnosis Comments CHEMISTRY-OUTSIDE Routine 03/07/2023 documented in this encounter Results * (ABNORMAL) CHEMISTRY-OUTSIDE (03/07/2023) Not all results display below - see scan for full detail OUTSIDE LAB (SEE SCANNED REPORT) Comment:SCAN INCLUDES: CBCD, PT INR, PTT, RENAL FUNCTION CREATININE-OUTSID E LAB 0.90 0.40 - 1.50 MG/DL OUTSIDE LAB (SEE SCANNED REPORT) EGFR-OUTSIDE LAB 70 >=60 ML/MIN/1.7 3M2 OUTSIDE LAB (SEE SCANNED REPORT) POTASSIUM-OUTSIDE LAB 3.8 3.6 - 5.0 MMOL/L OUTSIDE LAB (SEE SCANNED REPORT) GLUCOSE-OUTSIDE LAB 128(A) 65 - 110 MG/DL OUTSIDE LAB (SEE [...] LAB OUTSIDE LAB (SEE SCANNED REPORT) HEMOGLOBIN, [id number] LAB OUTSIDE LAB (SEE SCANNED REPORT) PHOSPHORUS-OUTSID E LAB 4.0 3.0 - 4.9 MG/DL OUTSIDE LAB (SEE SCANNED REPORT) PTH-OUTSIDE LAB OUTS DANYA LAB (SEE SCANNED REPORT) MICROALBUMIN RATIO-OUTSIDE LAB OUTSIDE LA B (SEE SCANNED REPORT) PROTEIN, UA-OUTSIDE LAB OUTSIDE LAB (SEE SCANNED REPORT) HEMOGLOBIN-OUTSID E LAB 14.1 12 - 16 GM/DL OUTSIDE LAB (SEE SCANNED REPORT) 03/07/2023 Candido Booker DO LABORATORY OUTSIDE LAB (SEE SCANNED REPORT) documented in this encounter Care Teams Probate Paralegal Relationship Specialty Start Date End Date Susana Carey DO [address] [place] [address] PCP - General Family Medicine 12/28/21 documented as of this encounter
--- OUTSIDE RECORDS SUMMARY | 2023-03-12 09:08 | External Medical Summary | Summary of Care ---
Author Name Unknown Organization [facility] Address [address] [facility] [place] [address] Phone [phone] Care Team Providers Care Flag Maker Name Role Phone Susana Carey DO Primary Care Provider +1- [phone] Encounter Details Date Type Department Care Team (Late st Contact Info) Description 02/07/2023 Result Scan Unspecified Department <No scans attached> Allergies No known active allergiesdocumented as of this encounter (statuses as of 02/08/2023) Medications Medication Sig Dispensed Refills Start Date [...] MCG/INH Inhalation Aerosol Powder Breath Activated (umeclidinium-vilant stephani)Indications:TRUST VAULT CUSTODIAN D, 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) Inhale [...] BEFORE BEDTIME) 60 Tablet 3 02/06/2023 Active documented as of this encounter (statuses as of 02/08/2023) Active Problems Problem Noted Date Diagnosed Date [...] as of this encounter (statuses as of 02/08/2023) Immunizations Name Administration Dates Next Due COVID-19 mRNA, LNP-s, No Pre serve, 2-Dose Series (Vivolux) 06/09/2021,01/14/2021,06/02/2020,05/12 Pneumococcal Conjugate Vacc, 13 Valent (Prevnar) 12/24/2015 Pneumococcal Conjugate Vacci ne, 20-valent ([id number]) 07/13/2022 Pneumococcal Polysaccharide PPV23 (Pneumovax) 04/16/2017,2011 Seasonal [...] 6:00 PM EDT Office Visit [facility] [address] [place] [address] Wilmar Delgadillo PA-C [address] [place] [address] Health Maintenance Due Date Last Done Comments DISCUSS TOBACCO CESSATION (REFER TO SMARTSET #[id number]) 1955 Depression Screening 1967 Alpha-1 Antitrypsin 05/04/1973 [...] Procedure Name Priority Date/Time Associated Diagnosis Comments RADIOLOGY SCANNED RESULT 02/07/2023 documented in this encounter Results * RADIOLOGY SCANNED RESULT (02/07/2023) 02/07/2023 No Physician Data Unknown DIAGNOSTIC RAD IOLOGY SERVICES documented in this encounter Care Teams Flag Maker Relationship Specialty Start Date End Date Susana Carye DO [address] [place] [address] PCP - General Family Medicine 12/28/21 documented as of this encounter
--- OUTSIDE RECORDS SUMMARY | 2023-03-12 09:08 | External Medical Summary | Summary of Care ---
Author Name Unknown Organization [facility] Address [address] [place] [address] Phone [phone] Care Team Providers Care Reports Developer Name Role Phone Susana Carey DO Primary Care Provider +1- [phone] Reason for Visit * Reason Onset Date Comments Home Health 01/08/2023 Encounter Details Date Type Department Care Team (Late st Contact Info) Description 01/08/2023 Telephone Family Practice [place] [address] [place] [address] Susana Carey DO [address] [place] [address] Home Health Allergies No known active allergiesdocumented as of this encounter (statuses as of 01/08/2023) Medications Medication Sig Dispensed Refills Start Date [...] 1 Capsule before bedtime. 0 11/14/2021 Active Sertraline HCl 100 MG Oral Tablet (Zoloft) Take 1 Tablet by mouth in the morning. Taking with 25 mg. 0 10/27/2021 Active Doxylamine Succinate (Sleep) 25 MG Oral Tablet Take 1 Tablet by mouth at bedtime as needed. 0 Active Vitamin D3 10 MCG (400 UNIT) Oral Tablet (Cholecalciferol) Take 5 Tablets by mouth in the morning. 0 Active Anoro Ellipta 62.5-25 MCG/INH Inhalation Aerosol Powder Breath Activated (umeclidinium-vilant stephani)Indications:HEARING CONSULTANT D, 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) Inhale [...] Aerosol SolutionIndications: COPD, severity to be determined ([facility]) Inhale 2 Puffs by mouth every 4 [...] OTHER MEDICATIONS) 30 Tablet 0 01/08/2023 Active documented as of this encounter (statuses as of 01/08/2023) Active Problems Problem Noted Date Diagnosed Date [...] as of this encounter (statuses as of 01/08/2023) Immunizations Name Administration Dates Next Due COVID-19 mRNA, LNP-s, No Pre serve, 2-Dose Series ([employer]) 06/09/2021,01/14/2021,06/02/2020,05/12 Pneumococcal Conjugate Vacc, 13 Valent (Prevnar) 12/24/2015 Pneumococcal Conjugate Vacci ne, 20-valent ([id number]) 07/13/2022 Pneumococcal Polysaccharide PPV23 (Pneumovax) 04/16/2017,2011 Seasonal [...] encounter Miscellaneous Notes * Telephone Encounter - Marilee Rees LPN - 01/08/2023 12:32 PM EST Admission/Start of Care Admission/Start of Care: GILBERTO Hewitt, Calling from: [facility] Patient was Admitted to: [facility] for: Rehab s/p back surgery from to 01/03/2023 Referral received for: Care Home, PT, and OT Planned start of care date:Yes, Date 01/07/23 Start of care completed on: 01/07/23 Report/Concerns of:None Symptoms: none Vitals: T 97.5 P 78 RR 18 BP 140/72 SP O2 95% RA Lung sounds CTA Weight 168 lbs. Next Nursing visit(s) on 01/11/2023 They will call with any updates or additional concerns from the upcoming HH visit. Last Office Visit: 07/04/2022 Has patient been scheduled or seen in the office for a follow up visit: Yes- on 01/16/2023 Advised that orders will be signed by Susana Carey DO and to fax to the office for signature. documented in this encounter Plan of Treatment Upcoming Encounters Date Type Department Care Team (Late st Contact Info) Description 01/16/2023 10:20 AM EST Office Visit [facility] [address] [place] [address] Susana Carey DO [address] [place] [address] Health Maintenance Due Date Last Done Comments DISCUSS TOBACCO CESSATION (REFER TO SMARTSET #7502) 1955 Depression Screening 1967 Alpha-1 Antitrypsin 05/04/1973 [...] Not on filedocumented as of this encounter Care Teams Reports Developer Relationship Specialty Start Date End Date Susana Carey DO [address] [facility] [place] [address] PCP - General Family Medicine 12/28/21 documented as of this encounter
--- OUTSIDE RECORDS SUMMARY | 2023-03-12 09:08 | External Medical Summary | Summary of Care ---
Author Name Unknown Organization [facility] Address [address] [facility] [place] [place] [address] Phone [phone] Care Team Providers Care Cell Feed Department Supervisor Name Role Phone Unavailable Primary Care Provider Unavailabl e Encounter Details Date Type Department Care Team (Latest Contact Info) Description 03/18/2021 9:15 AM EST - 03/18/2021 11:59 PM EST Hospital Encounter Radiology Film File [address] [place] [address] Discharge Disposition: Home - Self Care Allergies No known active allergiesdocumented as of this encounter (statuses as of 02/09/2023) Medications No known medicationsdocumented as of this encounter (statuses as of 02/09/2023) Active Problems Problem Noted Date Diagnosed Date [...] as of this encounter (statuses as of 02/09/2023) Immunizations Name Administration Dates Next Due COVID-19 mRNA, LNP-s, No Pre serve, 2-Dose Series (Pfizer) 01/14/2021,06/02/2020,05/12/2020 Pneumococcal Conjugate Vacc, 13 Valent (Prevnar) 12/24/2015 Pneumococcal Polysaccharide PPV23 (Pneumovax) 04/16/2017,2011 Seasonal Influenza Virus Vac cine, Unspecified Formulation 12/15/2020 Seasonal Influenza, QUAD, wi th Preserv, 6 mons & Above, 0.5 mL, IM 12/15/2020 Seasonal Influenza, Quadrivalent, ID 11/18/2019, 11/25/2018,10/31/2017 Seasonal Influenza, Split, I IV3, With Preserve, Inj 11/26/2020,10/24/2016,11/17/2015,11/20,11/20/2013,10/27/2012,11/27/2011 ,11/18/2010,12/09/2009,02/21/2005 TDAP (age 10 and older)(Boostrix) 2011 Varicella Zoster Vaccine (Adult) 11/27/2011 Zoster Vaccine Recombinant (Shingrix) 07/16/2020 ,03/15/2020 documented as of this encounter Social History Tobacco Use Types Packs/Day Years Used Date Smoking Tobacco: Never Assessed Sex and Gender Information Value Date Recorded [...] Office Visit Family Practice [address] [place] [address] Wilmar Delgadillo PA-C [address] [place] [address] [id number] Health Maintenance Due Date Last Done Comments DISCUSS TOBACCO CESSATION (REFER TO SMARTSET #9279) 1955 Depression Screening 1967 Alpha-1 Antitrypsin 05/04/1973 [...] Name Priority Date/Time Associated Diagnosis Comments RADIOLOGY EXAM - GENERAL RAD (IMAGES ONLY,NO REPORT) Routine 03/18/2021 9:15 AM EST documented in this encounter Results * RADIOLOGY EXAM - GENERAL RAD (IMAGES ONLY,NO REPORT) (03/18/2021 9:15 AM EST) 03/18/2021 9:12 AM EST Narrative Scheduling, Silent - 02/08/2023 11:34 AM EST This is an imaging study not interpreted or resulted by a [facility] or [facility] contracted radiologist. Wilmar Delgadillo PA-C RADIOLOGY (RA D GENERAL) documented in this encounter
--- OUTSIDE RECORDS SUMMARY | 2023-03-12 09:08 | External Medical Summary | Summary of Care ---
Author Name Unknown Organization [facility] Address [address] [place] [address] Phone [phone] Care Team Providers Care Rouge Miller Name Role Phone Susana Carey DO Primary Care Provider +1- [phone] Reason for Visit * Reason Onset Date Comments Home Health 02/12/2023 Encounter Details Date Type Department Care Team (Late st Contact Info) Description 02/12/2023 Telephone Family Practice [place] [address] [place] [address] Susana Carey DO [address] [place] [address] Home Health Allergies No known active allergiesdocumented as of this encounter (statuses as of 02/12/2023) Medications Medication Sig Dispensed Refills Start Date [...] MCG/INH Inhalation Aerosol Powder Breath Activated (umeclidinium-vilant stephani)Indications:FLOATMAN D, 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) Inhale [...] as of this encounter (statuses as of 02/12/2023) Active Problems Problem Noted Date Diagnosed Date [...] as of this encounter (statuses as of 02/12/2023) Immunizations Name Administration Dates Next Due COVID-19 mRNA, LNP-s, No Pre serve, 2-Dose Series (Insplorion) 06/09/2021,01/14/2021,06/02/2020,05/12 Pneumococcal Conjugate Vacc, 13 Valent (Prevnar) 12/24/2015 Pneumococcal Conjugate Vacci ne, 20-valent ([email or web address]) 07/13/2022 Pneumococcal Polysaccharide PPV23 (Pneumovax) 04/16/2017,2011 Seasonal [...] encounter Miscellaneous Notes * Telephone Encounter - Shara Ordaz LPN - 02/12/2023 12:56 PM EST Marcelina calling from [facility], She stated that they have been seeing patient for awhile now as patient had back surgery and they are out of orders. They would like to see patient one more time and discharge her. Marcelina will be sending the order over for signature. documented in this encounter Plan of Treatment Upcoming Encounters Date Type Department Care Team (Late st Contact Info) Description 06/11/2023 6:00 PM EDT Office Visit Family Practice [address] [place] [address] Wilmar Delgadillo PA-C [address] [place] [address] Health Maintenance Due Date Last Done Comments DISCUSS TOBACCO CESSATION (REFER TO SMARTSET #7630) 1955 Depression Screening 1967 Alpha-1 Antitrypsin 05/04/1973 [...] 12/22/2023 12/21/2022, 09/02/2022, 07/20/2022, Additional history exists Diabetes Screening 12/29/2025 [...] filedocumented as of this encounter Care Teams Rouge Miller Relationship Specialty Start Date End Date Susana Carey DO [address] [facility] [place] [address] PCP - General Family Medicine 12/28/21 documented as of this encounter
--- OUTSIDE RECORDS SUMMARY | 2023-03-12 09:08 | External Medical Summary | Summary of Care ---
Author Name Unknown Organization [facility] Address [address] [place] [address] Phone [phone] Care Team Providers Care Supplier Quality Engineer Name Role Phone Susana Carey DO Primary Care Provider +1- [phone] Reason for Visit * Reason Comments eRx-Medication Refill Encounter Details Date Type Department Care Team (Late st Contact Info) Description 02/04/2023 Refill Family Practice [place] [address] [place] [address] Susana Carey DO [address] [facility] [place] [address] Hypothyroidism Allergies No known active allergiesdocumented as of this encounter (statuses as of 02/06/2023) Medications Medication Sig Dispensed Refills Start Date [...] BEFORE BEDTIME) 60 Tablet 3 02/06/2023 Active Magnesium Oxide 400 MG Oral TabletIndications :Hypothyroidism Take 1 Tablet by mouth in the morning and 1 Tablet before bedtime. 60 Tablet 3 06/13/2022 Discontinued documented as of this encounter (statuses as of 02/06/2023) Active Problems Problem Noted Date Diagnosed Date [...] as of this encounter (statuses as of 02/06/2023) Immunizations Name Administration Dates Next Due COVID-19 mRNA, LNP-s, No Pre serve, 2-Dose Series ([email or web address]) 06/09/2021,01/14/2021,06/02/2020,05/12 Pneumococcal Conjugate Vacc, 13 Valent (Prevnar) 12/24/2015 Pneumococcal Conjugate Vacci ne, 20-valent ([id number]) 07/13/2022 Pneumococcal Polysaccharide PPV23 (Pneumovax) 04/16/2017,2011 Seasonal [...] encounter Miscellaneous Notes * Telephone Encounter - Susana Carey DO - 02/06/2023 9:51 AM ESTSigned Prescriptions: Disp Refills Magnesium Oxide 400 MG Oral Tablet 60 Tab*3 Sig: TAKE ONE TABLET BY MOUTH TWICE A DAY (MORNING AND BEFORE BEDTIME) Authorizing Provider: SUSANA CAREY * Telephone Encounter - Kacey Vicente LPN - 02/06/2023 9:39 AM ESTPending Prescriptions: Disp Refills Magnesium Oxide 400 MG Oral Tablet [Pharma*60 Tab*3 Sig: TAKE ONE TABLET BY MOUTH TWICE A DAY (MORNING AND BEFORE BEDTIME) * Telephone Encounter - Kacey Vicente LPN - 02/06/2023 9:39 AM EST Pending Prescriptions: Disp Refills Magnesium Oxide 400 MG Oral Tablet [Pharm*60 Tab*3 Sig: TAKE ONE TABLET BY MOUTH TWICE A DAY (MORNING AND BEFORE BEDTIME) Last Visit: 07/04/2022 (in office), Visit date not found (telemedicine) Next Visit: 06/11/2023 Last date the medication was ordered: 06/13/2022 Patient Active Problem List Diagnosis Code Gastroesophageal reflux disease K21.9 Hyperlipidemia E78.5 Hypothyroidism E03.9 Lumbar radiculopathy M54.16 Malignant neoplasm of lower-inner quadrant of female breast (HCC) C50.319 Multiple sclerosis (HCC) G35 Osteopenia of multiple sites M85.89 Vitamin D deficiency E55.9 Vitamin B 12 deficiency E53.8 Tobacco use disorder F17.200 Degeneration of lumbar or lumbosacral intervertebral disc M51.37 Anxiety state F41.1 COPD, severity to be determined ([facility]) J44.9 Metastatic breast cancer C50.919 Warthin's tumor D11.9 Macrocytic anemia D53.9 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 Mediastinal adenopathy R59.0 Port-A-Cath in place Z95.828 Labs: Lab Results Component Value Date/Time CREATININE-OUTSIDE LAB 0.80 12/29/2022 12:00 AM Lab Results Component Value Date/Time POTASSIUM-OUTSIDE LAB 3.9 12/29/2022 12:00 AM Lab Results Component Value Date/Time TSH - OUTSIDE LAB 0.125 (A) 12/21/2022 12:00 AM TSH W/REFLEX TO FT4-QUEST H 10.200 (A) 10/27/2022 12:00 AM Lab Results Component Value Date/Time LDL (CALCULATED) 31 01/05/2022 12:00 AM LDL (CALCULATED)-OUTSIDE LAB 51 07/20/2022 12:00 AM LDL (CALCULATED)-OUTSIDE LAB 59 09/02/2020 12:00 AM Lab Results Component Value Date/Time ALT-OUTSIDE LAB 31 01/05/2022 12:00 AM Hemoglobin AIC Results: No results found for: "HEMOGLOBIN A1C" * Telephone Encounter - Adelso Shannon - 02/04/2023 1:23 PM ESTPending Prescriptions: Disp Refills Magnesium Oxide 400 MG Oral Tablet [Pharma*60 Tab*3 Sig: TAKE ONE TABLET BY MOUTH TWICE A DAY (MORNING AND BEFORE BEDTIME) documented in this encounter Plan of Treatment Upcoming Encounters Date Type Department Care Team (Late st Contact Info) Description 06/11/2023 6:00 PM EDT Office Visit Family Practice [address] [place] [address] Wilmar Delgadillo PA-C [address] [place] [address] Health Maintenance Due Date Last Done Comments DISCUSS TOBACCO CESSATION (REFER TO SMARTSET #0857) 1955 Depression Screening 1967 Alpha-1 Antitrypsin 05/04/1973 [...] as of this encounter Visit Diagnoses Diagnosis Hypothyroidism Unspecified hypothyroidism documented in this encounter Care Teams Supplier Quality Engineer Relationship Specialty Start Date End Date Susana Carey DO [address] [facility] [place] [address] PCP - General Family Medicine 12/28/21 documented as of this encounter
--- OUTSIDE RECORDS SUMMARY | 2023-03-12 09:08 | External Medical Summary | Summary of Care ---
Author Name Unknown Organization [facility] Address [address] [facility] [place] [address] Phone [phone] Care Team Providers Care Major Assembly Lineman Name Role Phone Susana Carey DO Primary Care Provider +1- [phone] Reason for Visit * Reason Comments eRx-Medication Refill Encounter Details Date Type Department Care Team (Late st Contact Info) Description 02/15/2023 Refill Family Practice [place] [address] [place] [address] Susana Carey DO [address] [place] [address] COPD, 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) Allergies No known active allergiesdocumented as of this encounter (statuses as of 02/16/2023) Medications Medication Sig Dispensed Refills Start Date [...] OR CHEW 60 Tablet 2 02/16/2023 Active Mucus Relief 600 MG Oral Tablet Extended Release 12 Hour (guaiFENesin ER)Indications:CO PD, 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) TAKE ONE TABLET BY MOUTH EVERY MORNING AND ONE TABLET BEFORE BEDTIME. TAKE WITH PLENTY OF WATER. DO NOT CUT, CRUSH, OR CHEW. 60 Tablet 2 10/11/2022 Discontinued documented as of this encounter (statuses as of 02/16/2023) Active Problems Problem Noted Date Diagnosed Date [...] as of this encounter (statuses as of 02/16/2023) Immunizations Name Administration Dates Next Due COVID-19 mRNA, LNP-s, No Pre serve, 2-Dose Series (Pfizer) 06/09/2021,01/14/2021,06/02/2020,05/12 Pneumococcal Conjugate Vacc, 13 Valent (Prevnar) 12/24/2015 Pneumococcal Conjugate Vacci ne, 20-valent ([id number]) 07/13/2022 Pneumococcal Polysaccharide PPV23 (Pneumovax) 04/16/2017,2011 Seasonal [...] encounter Miscellaneous Notes * Telephone Encounter - Genie Bishop MD - 02/16/2023 8:34 AM ESTSigned Prescriptions: Disp Refills Mucus Relief 600 MG Oral Tablet Extended R*60 Tab*2 Sig: TAKE ONE TABLET BY MOUTH EVERY MORNING AND ONE TABLET BEFORE BEDTIME. TAKE WITH PLENTY OF WATER. DO NOT CUT,CRUSH OR CHEW Authorizing Provider: GENIE BISHOP * Telephone Encounter - Kacey Vicente LPN - 02/16/2023 8:19 AM ESTPending Prescriptions: Disp Refills Mucus Relief 600 MG Oral Tablet Extended R*60 Tab*2 Sig: TAKE ONE TABLET BY MOUTH EVERY MORNING AND ONE TABLET BEFORE BEDTIME. TAKE WITH PLENTY OF WATER. DO NOT CUT, CRUSH, OR CHEW. * Telephone Encounter - Kacey Vicente LPN - 02/16/2023 8:19 AM EST Pending Prescriptions: Disp Refills Mucus Relief 600 MG Oral Tablet Extended *60 Tab*2 Sig: TAKE ONE TABLET BY MOUTH EVERY MORNING AND ONE TABLET BEFORE BEDTIME. TAKE WITH PLENTY OF WATER. DO NOT CUT,CRUSH OR CHEW Last Visit: 07/04/2022 (in office), Visit date not found (telemedicine) Next Visit: 06/11/2023 Last date the medication was ordered: 10/11/2022 Patient Active Problem List Diagnosis Code Gastroesophageal [...] state F41.1 COPD, 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) J44.9 Metastatic breast cancer C50.919 Warthin's tumor [...] * Telephone Encounter - Adelso Shannon - 02/16/2023 5:10 AM ESTPending Prescriptions: Disp Refills Mucus Relief 600 MG Oral Tablet Extended R*60 Tab*2 Sig: TAKE ONE TABLET BY MOUTH EVERY MORNING AND ONE TABLET BEFORE BEDTIME. TAKE WITH PLENTY OF WATER. DO NOT CUT, CRUSH, OR CHEW. documented in this encounter Plan of Treatment Upcoming Encounters Date Type Department Care Team (Raciel Contact Info) Description 06/11/2023 6:00 PM EDT Office Visit Family Practice [address] [place] [address] Wilmar Delgadillo PA-C [address] [place] [address] Health Maintenance Due Date Last Done Comments DISCUSS TOBACCO CESSATION (REFER TO SMARTSET #5259) 1955 Depression Screening 1967 Alpha-1 Antitrypsin 05/04/1973 [...] as of this encounter Visit Diagnoses Diagnosis COPD, 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) Chronic airway obstruction, not elsewhere classified documented in this encounter Care Teams Major Assembly Lineman Relationship Specialty Start Date End Date Susana Carey DO [address] [facility] [place] [address] PCP - General Family Medicine 12/28/21 documented as of this encounter
--- OUTSIDE RECORDS SUMMARY | 2023-03-12 09:09 | External Medical Summary | Continuity Of Care Document ---
Author Name Unknown Address [address] [place] [address] [address] Organization [facility] () Care Team Providers Care Patrol Judge Name Role Phone DO Strickland Amy Primary Care Provider [phone] Problems Code Description Start Date End Date Status Z48.811 Encounter for surgic al aftercare following surgery on the nervous system 12/19/2022 Active K21.9 Gastro-esophageal re flux disease without esophagitis 12/19/2022 Active G89.4 Chronic pain syndrome 12/19/2022 Act xi G57.90 Unspecified mononeur opathy of unspecified lower limb 12/19/2022 Active M19.91 Primary osteoarthritis, unspecified site 2022 Active Z68.33 Body mass index [BMI] 33.0-33.9, adult 12/20/19 Active E78.5 Hyperlipidemia, unspecified 12/19/2022 Active C78.00 Secondary malignant neoplasm of unspecified kenneth g 12/19/2022 Active K44.9 Diaphragmatic hernia without obstruction or gangrene 12/19/2022 Active M43.26 Fusion of spine, lumbar region 12/19/2022 Active E03.9 Hypothyroidism, unspecified 12/19/2022 Active VITAL SIGNS Date Time Diastolic blood pressure Systolic blood pressure Body height Body weight Temperature SpO2 Blood Sugar Pulse Respirations 024 52232 7 62.00 mm[Hg] - Sitting 108.00 mm[Hg] - Sitting 96.80 Tympanic 91.00 % 94.00/ min 024 60530 4 70.00 mm[Hg] - Lying Down 110.00 mm[Hg] - Lying Down 97.00 Tympanic 90.00/ min 18.00/min 025 83928 8 98.20 Tympanic 92.00 % 83.00/ min 025 33405 9 63.00 mm[Hg] - Lying Down 111.00 mm[Hg] - Lying Down 98.20 Forehead Scan 83.00/ min 18.00/min 025 36717 9 63.00 mm[Hg] - Sitting 112.00 mm[Hg] - Sitting 98.00 Tympanic 83.00/ min 18.00/min 025 92880 2 65.00 mm[Hg] - Sitting 115.00 mm[Hg] - Sitting 97.50 Tympanic 91.00 % 96.00/ min 025 73666 4 77.00 mm[Hg] - Sitting 129.00 mm[Hg] - Sitting 98.20 Tympanic 81.00/ min 18.00/min 025 22545 9 168.00 NI 026 52544 0 43.00 mm[Hg] - Lying Down 105.00 mm[Hg] - Lying Down 98.20 Tympanic 94.00 % 80.00/ min 026 37365 0 64.00 mm[Hg] - Lying Down 119.00 mm[Hg] - Lying Down 98.20 Forehead Scan 84.00/ min 18.00/min 026 24276 5 57.00 mm[Hg] - Sitting 126.00 mm[Hg] - Sitting 97.90 Tympanic 82.00/ min 20.00/min 026 46250 6 61.00 mm[Hg] - Lying Down 122.00 mm[Hg] - Lying Down 98.20 Tympanic 87.00/ min 18.00/min 027 46831 3 61.00 mm[Hg] - Sitting 116.00 mm[Hg] - Sitting 97.50 Forehead Scan 89.00/ min 18.00/min 027 04944 0 97.30 Tympanic 96.00 % 83.00/ min 028 02698 3 45.00 mm[Hg] - Sitting 144.00 mm[Hg] - Sitting 97.70 Tympanic 95.00 % 84.00/ min 028 86462 1 65.00 mm[Hg] - Sitting 138.00 mm[Hg] - Sitting 96.90 Forehead Scan 92.00 % 61.00/ min 029 06742 6 69.00 mm[Hg] - Sitting 126.00 mm[Hg] - Sitting 97.00 Forehead Scan 97.00 % 100.00 /min 029 86983 4 54.00 mm[Hg] - Lying Down 105.00 mm[Hg] - Lying Down 98.20 Forehead Scan 80.00/ min 030 35506 5 60.00 mm[Hg] - Lying Down 131.00 mm[Hg] - Lying Down 96.90 Forehead Scan 97.00 % 77.00/ min 030 07495 5 58.00 mm[Hg] - Lying Down 110.00 mm[Hg] - Lying Down 98.20 Forehead Scan 84.00/ min 031 85716 5 031 18636 6 69.00 mm[Hg] - Sitting 134.00 mm[Hg] - Sitting 97.20 Tympanic 98.00 % 71.00/ min 031 85914 0 60.00 mm[Hg] - Lying Down 111.00 mm[Hg] - Lying Down 97.40 Forehead Scan 82.00/ min 101 40631 4 60.00 mm[Hg] - Sitting 113.00 mm[Hg] - Sitting 97.00 Tympanic 96.00 % 80.00/ min 101 82441 0 168.20 NI 97.20 Tympanic 80.00/ min 101 78330 2 168.00 NI 97.20 Tympanic 80.00/ min 102 00581 7 77.00 mm[Hg] - Lying Down 138.00 mm[Hg] - Lying Down 98.20 Tympanic 92.00 % 92.00/ min Immunizations Vaccine Date Status COVID-19 05/12/2020 Completed COVID-19 06/02/2020 Completed COVID-19 06/06/2020 Completed COVID-19 01/14/2021 Completed COVID-19 06/09/2021 Completed COVID-19 01/27/2022 Completed Influenza 12/11/2022 Completed (PCV13)Pneumococcal 12/24/2015 Completed (PPSV23)Pneumococcal 12/24/2015 Completed (PPSV23)Pneumococcal 05/04/2017 Completed (PCV20)Pneumococcal 07/13/2022 Completed
--- OUTSIDE RECORDS SUMMARY | 2023-03-12 09:09 | External Medical Summary | Continuity Of Care Document ---
Author Name Unknown Address [address] [address] Organization [facility] () Care Team Providers Care Settlement Agent Name Role Phone DO Strickland Amy Primary Care Provider [phone] Problems Code Description Start Date End Date [...] Temperature SpO2 Blood Sugar Pulse Respirations 024 08286 7 62.00 mm[Hg] - Sitting 108.00 mm[Hg] - Sitting 96.80 Tympanic 91.00 % 94.00/ min 024 67279 4 70.00 mm[Hg] - Lying Down 110.00 mm[Hg] - Lying Down 97.00 Tympanic 90.00/ min 18.00/min 025 35140 8 98.20 Tympanic 92.00 % 83.00/ min 025 12421 9 63.00 mm[Hg] - Lying Down 111.00 mm[Hg] - Lying Down 98.20 Forehead Scan 83.00/ min 18.00/min 025 62557 9 63.00 mm[Hg] - Sitting 112.00 mm[Hg] - Sitting 98.00 Tympanic 83.00/ min 18.00/min 025 06962 2 65.00 mm[Hg] - Sitting 115.00 mm[Hg] - Sitting 97.50 Tympanic 91.00 % 96.00/ min 025 21496 4 77.00 mm[Hg] - Sitting 129.00 mm[Hg] - Sitting 98.20 Tympanic 81.00/ min 18.00/min 025 92148 9 168.00 NI 026 55258 0 43.00 mm[Hg] - Lying Down 105.00 mm[Hg] - Lying Down 98.20 Tympanic 94.00 % 80.00/ min 026 74928 0 64.00 mm[Hg] - Lying Down 119.00 mm[Hg] - Lying Down 98.20 Forehead Scan 84.00/ min 18.00/min 026 12999 5 57.00 mm[Hg] - Sitting 126.00 mm[Hg] - Sitting 97.90 Tympanic 82.00/ min 20.00/min 026 59669 6 61.00 mm[Hg] - Lying Down 122.00 mm[Hg] - Lying Down 98.20 Tympanic 87.00/ min 18.00/min 027 45304 3 61.00 mm[Hg] - Sitting 116.00 mm[Hg] - Sitting 97.50 Forehead Scan 89.00/ min 18.00/min 027 67277 0 97.30 Tympanic 96.00 % 83.00/ min 028 36509 3 45.00 mm[Hg] - Sitting 144.00 mm[Hg] - Sitting 97.70 Tympanic 95.00 % 84.00/ min 028 70812 1 65.00 mm[Hg] - Sitting 138.00 mm[Hg] - Sitting 96.90 Forehead Scan 92.00 % 61.00/ min 029 63715 6 69.00 mm[Hg] - Sitting 126.00 mm[Hg] - Sitting 97.00 Forehead Scan 97.00 % 100.00 /min 029 74244 4 54.00 mm[Hg] - Lying Down 105.00 mm[Hg] - Lying Down 98.20 Forehead Scan 80.00/ min 030 70965 5 60.00 mm[Hg] - Lying Down 131.00 mm[Hg] - Lying Down 96.90 Forehead Scan 97.00 % 77.00/ min Immunizations Vaccine Date Status COVID-19 05/12/2020 Completed COVID-19 06/02/2020 Completed COVID-19 06/06/2020 Completed COVID-19 01/14/2021 Completed COVID-19 06/09/2021 Completed COVID-19 01/27/2022 Completed Influenza 12/11/2022 Completed (PCV13)Pneumococcal 12/24/2015 Completed (PPSV23)Pneumococcal 12/24/2015 Completed (PPSV23)Pneumococcal 05/04/2017 Completed (PCV20)Pneumococcal 07/13/2022 Completed
--- OUTSIDE RECORDS SUMMARY | 2023-03-12 09:09 | External Medical Summary | Continuity Of Care Document ---
Author Name Unknown Address [address] [address] Organization [facility] () Care Team Providers Care Vamp Maker Name Role Phone DO Strickland Amy Primary Care Provider [phone] Problems Code Description Start Date End Date Status Z47.89 Encounter for other orthopedic aftercare 2022 Active K21.9 Gastro-esophageal re flux disease without [...] Temperature SpO2 Blood Sugar Pulse Respirations 024 81744 7 62.00 mm[Hg] - Sitting 108.00 mm[Hg] - Sitting 96.80 Tympanic 91.00 % 94.00/ min 024 30479 4 70.00 mm[Hg] - Lying Down 110.00 mm[Hg] - Lying Down 97.00 Tympanic 90.00/ min 18.00/min 025 26681 8 98.20 Tympanic 92.00 % 83.00/ min 025 60137 9 63.00 mm[Hg] - Lying Down 111.00 mm[Hg] - Lying Down 98.20 Forehead Scan 83.00/ min 18.00/min 025 25427 9 63.00 mm[Hg] - Sitting 112.00 mm[Hg] - Sitting 98.00 Tympanic 83.00/ min 18.00/min 025 55464 2 65.00 mm[Hg] - Sitting 115.00 mm[Hg] - Sitting 97.50 Tympanic 91.00 % 96.00/ min 025 31209 4 77.00 mm[Hg] - Sitting 129.00 mm[Hg] - Sitting 98.20 Tympanic 81.00/ min 18.00/min 025 22233 9 168.00 NI 026 07296 0 43.00 mm[Hg] - Lying Down 105.00 mm[Hg] - Lying Down 98.20 Tympanic 94.00 % 80.00/ min 026 58572 0 64.00 mm[Hg] - Lying Down 119.00 mm[Hg] - Lying Down 98.20 Forehead Scan 84.00/ min 18.00/min 026 54282 5 57.00 mm[Hg] - Sitting 126.00 mm[Hg] - Sitting 97.90 Tympanic 82.00/ min 20.00/min 026 17662 6 61.00 mm[Hg] - Lying Down 122.00 mm[Hg] - Lying Down 98.20 Tympanic 87.00/ min 18.00/min 027 16437 3 61.00 mm[Hg] - Sitting 116.00 mm[Hg] - Sitting 97.50 Forehead Scan 89.00/ min 18.00/min 027 50184 0 97.30 Tympanic 96.00 % 83.00/ min 028 78445 3 45.00 mm[Hg] - Sitting 144.00 mm[Hg] - Sitting 97.70 Tympanic 95.00 % 84.00/ min 028 87990 1 65.00 mm[Hg] - Sitting 138.00 mm[Hg] - Sitting 96.90 Forehead Scan 92.00 % 61.00/ min 029 58185 6 69.00 mm[Hg] - Sitting 126.00 mm[Hg] - Sitting 97.00 Forehead Scan 97.00 % 100.00 /min 029 35749 4 54.00 mm[Hg] - Lying Down 105.00 mm[Hg] - Lying Down 98.20 Forehead Scan 80.00/ min 030 58893 5 60.00 mm[Hg] - Lying Down 131.00 mm[Hg] - Lying Down 96.90 Forehead Scan 97.00 % 77.00/ min 030 36536 5 58.00 mm[Hg] - Lying Down 110.00 mm[Hg] - Lying Down 98.20 Forehead Scan 84.00/ min 031 18227 5 031 06455 6 69.00 mm[Hg] - Sitting 134.00 mm[Hg] - Sitting 97.20 Tympanic 98.00 % 71.00/ min 031 00511 0 60.00 mm[Hg] - Lying Down 111.00 mm[Hg] - Lying Down 97.40 Forehead Scan 82.00/ min 101 55533 4 60.00 mm[Hg] - Sitting 113.00 mm[Hg] - Sitting 97.00 Tympanic 96.00 % 80.00/ min 101 56571 0 168.20 NI 97.20 Tympanic 80.00/ min 101 16601 2 168.00 NI 97.20 Tympanic 80.00/ min 102 63858 7 77.00 mm[Hg] - Lying Down 138.00 mm[Hg] - Lying Down 98.20 Tympanic 92.00 % 92.00/ min Immunizations Vaccine Date Status COVID-19 05/12/2020 Completed COVID-19 06/02/2020 Completed COVID-19 06/06/2020 Completed COVID-19 01/14/2021 Completed COVID-19 06/09/2021 Completed COVID-19 01/27/2022 Completed Influenza 12/11/2022 Completed (PCV13)Pneumococcal 12/24/2015 Completed (PPSV23)Pneumococcal 12/24/2015 Completed (PPSV23)Pneumococcal 05/04/2017 Completed (PCV20)Pneumococcal 07/13/2022 Completed
--- OUTSIDE RECORDS SUMMARY | 2023-03-12 09:09 | External Medical Summary | Summary of Care ---
Author Name Unknown Organization [facility] Address [address] [facility] [place] [address] Phone [phone] Care Team Providers Care Wet Pan Mixer Name Role Phone Susana Carey DO Primary Care Provider [phone] Reason for Visit * Reason Comments eRx-Medication Refill Encounter Details Date Type Department Care Team (Late st Contact Info) Description 01/06/2023 Refill Family Practice [place] [address] [place] [place] [address] Susana Carey DO [address] [place] [address] Hypothyroidism, unspecified type Allergies No known active [...] Aerosol SolutionIndicatio ns:COPD, severity to be determined ([facility]) Inhale 2 Puffs by mouth every 4 [...] OTHER MEDICATIONS) 30 Tablet 0 01/08/2023 Active Levothyroxine Sodium 200 MCG Oral Tablet (Levoxyl)Indicati ons:Hypothyroidis m, unspecified type TAKE 1 TABLET BY MOUTH DAILY IN THE MORNING (AT LEAST 30 MINUTES PRIOR TO BREAKFAST OR OTHER MEDICATIONS) 30 Tablet 1 10/23/2022 Discontinued documented as of this encounter (statuses [...] mRNA, LNP-s, No Pre serve, 2-Dose Series ([employer]) 06/09/2021,01/14/2021,06/02/2020,05/12 Pneumococcal Conjugate Vacc, 13 Valent (Prevnar) 12/24/2015 Pneumococcal Conjugate Vacci ne, 20-valent ([id number]) 07/13/2022 Pneumococcal Polysaccharide PPV23 (Pneumovax) 04/16/2017,2011 Seasonal [...] encounter Miscellaneous Notes * Telephone Encounter - Olivia Jeter, skiver hand - 01/08/2023 9:41 AM EST Received message from [facility] regarding patient needing labs. Placed call to patient to advise. Left message on voicemail advising of required labs Thank you, Olivia Jeter Weatherization Field Technician [facility] 01/08/2023, 9:41 AM * Telephone Encounter - Jing Hoffmann RPh - 01/08/2023 9:22 AM ESTSigned Prescriptions: Disp Refills Levothyroxine Sodium 200 MCG Oral Tablet (*30 Tab*0 Sig: TAKE ONE TABLET BY MOUTH EVERY MORNING (AT LEAST 30 MINUTES PRIOR TO BREAKFAST OR OTHER MEDICATIONS) Authorizing Provider: SUSANA CAREY Ordering User: JING HOFFMANN * Telephone Encounter - Jing Hoffmann RPh - 01/08/2023 9:19 AM EST Provided 30 days supply with 0 refill(s). Per refill protocol patient should have repeat TSH. Lab was mailed to her. Please see if she has completed. Reviewed AMP report, Care Gaps/Health Maintenance, medications list, and for any routine labs typically ordered for this patient. Lab orders placed. Please contact patient to advise of labs ordered for blood draw. Fasting is not required. Advise toobtain labs before requesting the next refill. Thank you, Jing Hoffmann PharmD Clinical Pharmacist [facility] ([facility]) (Formerly [facility]pharm[facility]) [phone] 01/08/2023, 9:21 AM documented in this encounter Plan of Treatment Upcoming Encounters Date Type Department Care Team (Late st Contact Info) Description 01/16/2023 10:20 AM EST Office Visit [facility] [address] [place] [address] Susana Carey, DO [address] [facility] [place] [address] Health Maintenance Due Date Last Done Comments DISCUSS TOBACCO CESSATION (REFER TO SMARTSET #[id number]) 1955 Depression Screening 1967 Alpha-1 Antitrypsin 05/04/1973 [...] type documented in this encounter Care Teams Wet Pan Mixer Relationship Specialty Start Date End Date Susana Carey DO [address] [facility] [place] [id number] PCP - General Family Medicine 12/28/21 documented as of this encounter
--- OUTSIDE RECORDS SUMMARY | 2023-03-12 09:09 | External Medical Summary | Continuity Of Care Document ---
Author Name Unknown Address [address] [address] Organization [facility] () Care Team Providers Care Junior Staff Accountant Name Role Phone DO Strickland Amy Primary Care Provider [phone] Problems Code Description Start Date End Date [...] Fusion of spine, lumbar region 12/19/2022 Active J44.9 Chronic obstructive pulmonary disease, unspecified 12/19/2022 Active E03.9 Hypothyroidism, unspecified 12/19/2022 Active VITAL SIGNS Date Time Diastolic blood pressure Systolic blood pressure Body height Body weight Temperature SpO2 Blood Sugar Pulse Respirations 024 21636 7 62.00 mm[Hg] - Sitting 108.00 mm[Hg] - Sitting 96.80 Tympanic 91.00 % 94.00/ min 024 74543 4 70.00 mm[Hg] - Lying Down 110.00 mm[Hg] - Lying Down 97.00 Tympanic 90.00/ min 18.00/min 025 31371 8 98.20 Tympanic 92.00 % 83.00/ min 025 83042 9 63.00 mm[Hg] - Lying Down 111.00 mm[Hg] - Lying Down 98.20 Forehead Scan 83.00/ min 18.00/min 025 23013 9 63.00 mm[Hg] - Sitting 112.00 mm[Hg] - Sitting 98.00 Tympanic 83.00/ min 18.00/min 025 26271 2 65.00 mm[Hg] - Sitting 115.00 mm[Hg] - Sitting 97.50 Tympanic 91.00 % 96.00/ min 025 91403 4 77.00 mm[Hg] - Sitting 129.00 mm[Hg] - Sitting 98.20 Tympanic 81.00/ min 18.00/min 025 55315 9 168.00 NI 026 81141 0 43.00 mm[Hg] - Lying Down 105.00 mm[Hg] - Lying Down 98.20 Tympanic 94.00 % 80.00/ min 026 93715 0 64.00 mm[Hg] - Lying Down 119.00 mm[Hg] - Lying Down 98.20 Forehead Scan 84.00/ min 18.00/min 026 38246 5 57.00 mm[Hg] - Sitting 126.00 mm[Hg] - Sitting 97.90 Tympanic 82.00/ min 20.00/min 026 86756 6 61.00 mm[Hg] - Lying Down 122.00 mm[Hg] - Lying Down 98.20 Tympanic 87.00/ min 18.00/min 027 35466 3 61.00 mm[Hg] - Sitting 116.00 mm[Hg] - Sitting 97.50 Forehead Scan 89.00/ min 18.00/min 027 21516 0 97.30 Tympanic 96.00 % 83.00/ min 028 70569 3 45.00 mm[Hg] - Sitting 144.00 mm[Hg] - Sitting 97.70 Tympanic 95.00 % 84.00/ min 028 70488 1 65.00 mm[Hg] - Sitting 138.00 mm[Hg] - Sitting 96.90 Forehead Scan 92.00 % 61.00/ min 029 84669 6 69.00 mm[Hg] - Sitting 126.00 mm[Hg] - Sitting 97.00 Forehead Scan 97.00 % 100.00 /min 029 62042 4 54.00 mm[Hg] - Lying Down 105.00 mm[Hg] - Lying Down 98.20 Forehead Scan 80.00/ min 030 72404 5 60.00 mm[Hg] - Lying Down 131.00 mm[Hg] - Lying Down 96.90 Forehead Scan 97.00 % 77.00/ min 030 08001 5 58.00 mm[Hg] - Lying Down 110.00 mm[Hg] - Lying Down 98.20 Forehead Scan 84.00/ min 031 59753 5 20574 031 90132 6 69.00 mm[Hg] - Sitting 134.00 mm[Hg] - Sitting 97.20 Tympanic 98.00 % 71.00/ min 031 32175 0 60.00 mm[Hg] - Lying Down 111.00 mm[Hg] - Lying Down 97.40 Forehead Scan 82.00/ min 101 86200 4 60.00 mm[Hg] - Sitting 113.00 mm[Hg] - Sitting 97.00 Tympanic 96.00 % 80.00/ min 101 00730 0 168.20 NI 97.20 Tympanic 80.00/ min 101 75957 2 168.00 NI 97.20 Tympanic 80.00/ min 63691 102 14006 7 77.00 mm[Hg] - Lying Down 138.00 mm[Hg] - Lying Down 98.20 Tympanic 92.00 % 92.00/ min Immunizations Vaccine Date Status COVID-19 05/12/2020 Completed COVID-19 06/02/2020 Completed COVID-19 06/06/2020 Completed COVID-19 01/14/2021 Completed COVID-19 06/09/2021 Completed COVID-19 01/27/2022 Completed Influenza 12/11/2022 Completed (PCV13)Pneumococcal 12/24/2015 Completed (PPSV23)Pneumococcal 12/24/2015 Completed (PPSV23)Pneumococcal 05/04/2017 Completed (PCV20)Pneumococcal 07/13/2022 Completed
--- OUTSIDE RECORDS SUMMARY | 2023-03-12 09:09 | External Medical Summary | Continuity Of Care Document ---
Author Name Unknown Address [address] [address] Organization [facility] () Care Team Providers Care Cis Coordinator Name Role Phone DO Strickland Amy Primary Care Provider [phone] Problems Code Description Start Date End Date [...] Temperature SpO2 Blood Sugar Pulse Respirations 024 30838 7 62.00 mm[Hg] - Sitting 108.00 mm[Hg] - Sitting 96.80 Tympanic 91.00 % 94.00/ min 024 23914 4 70.00 mm[Hg] - Lying Down 110.00 mm[Hg] - Lying Down 97.00 Tympanic 90.00/ min 18.00/min 025 85865 8 98.20 Tympanic 92.00 % 83.00/ min 025 60457 9 63.00 mm[Hg] - Lying Down 111.00 mm[Hg] - Lying Down 98.20 Forehead Scan 83.00/ min 18.00/min 025 01021 9 63.00 mm[Hg] - Sitting 112.00 mm[Hg] - Sitting 98.00 Tympanic 83.00/ min 18.00/min 025 05156 2 65.00 mm[Hg] - Sitting 115.00 mm[Hg] - Sitting 97.50 Tympanic 91.00 % 96.00/ min 025 86195 4 77.00 mm[Hg] - Sitting 129.00 mm[Hg] - Sitting 98.20 Tympanic 81.00/ min 18.00/min 025 00057 9 168.00 NI 026 07086 0 43.00 mm[Hg] - Lying Down 105.00 mm[Hg] - Lying Down 98.20 Tympanic 94.00 % 80.00/ min 026 81303 0 64.00 mm[Hg] - Lying Down 119.00 mm[Hg] - Lying Down 98.20 Forehead Scan 84.00/ min 18.00/min 026 42901 5 57.00 mm[Hg] - Sitting 126.00 mm[Hg] - Sitting 97.90 Tympanic 82.00/ min 20.00/min 026 75027 6 61.00 mm[Hg] - Lying Down 122.00 mm[Hg] - Lying Down 98.20 Tympanic 87.00/ min 18.00/min 027 47036 3 61.00 mm[Hg] - Sitting 116.00 mm[Hg] - Sitting 97.50 Forehead Scan 89.00/ min 18.00/min 027 04512 0 97.30 Tympanic 96.00 % 83.00/ min 028 98538 3 45.00 mm[Hg] - Sitting 144.00 mm[Hg] - Sitting 97.70 Tympanic 95.00 % 84.00/ min 028 41719 1 65.00 mm[Hg] - Sitting 138.00 mm[Hg] - Sitting 96.90 Forehead Scan 92.00 % 61.00/ min 029 77420 6 69.00 mm[Hg] - Sitting 126.00 mm[Hg] - Sitting 97.00 Forehead Scan 97.00 % 100.00 /min Immunizations Vaccine Date Status COVID-19 05/12/2020 Completed COVID-19 06/02/2020 Completed COVID-19 06/06/2020 Completed COVID-19 01/14/2021 Completed COVID-19 06/09/2021 Completed COVID-19 01/27/2022 Completed Influenza 12/11/2022 Completed (PCV13)Pneumococcal 12/24/2015 Completed (PPSV23)Pneumococcal 12/24/2015 Completed (PPSV23)Pneumococcal 05/04/2017 Completed (PCV20)Pneumococcal 07/13/2022 Completed
--- OUTSIDE RECORDS SUMMARY | 2023-03-12 09:09 | External Medical Summary | Continuity Of Care Document ---
Author Name Unknown Address [address] [address] Organization [facility] () Care Team Providers Care Wind Up Operator Name Role Phone DO Strickland Amy Primary Care Provider [phone] Problems Code Description Start Date End Date [...] Temperature SpO2 Blood Sugar Pulse Respirations 024 10081 7 62.00 mm[Hg] - Sitting 108.00 mm[Hg] - Sitting 96.80 Tympanic 91.00 % 94.00/ min 024 39210 4 70.00 mm[Hg] - Lying Down 110.00 mm[Hg] - Lying Down 97.00 Tympanic 90.00/ min 18.00/min 025 87202 8 98.20 Tympanic 92.00 % 83.00/ min 025 15557 9 63.00 mm[Hg] - Lying Down 111.00 mm[Hg] - Lying Down 98.20 Forehead Scan 83.00/ min 18.00/min 025 56866 9 63.00 mm[Hg] - Sitting 112.00 mm[Hg] - Sitting 98.00 Tympanic 83.00/ min 18.00/min 025 87025 2 65.00 mm[Hg] - Sitting 115.00 mm[Hg] - Sitting 97.50 Tympanic 91.00 % 96.00/ min 025 54911 4 77.00 mm[Hg] - Sitting 129.00 mm[Hg] - Sitting 98.20 Tympanic 81.00/ min 18.00/min 025 61148 9 168.00 NI 026 71445 0 43.00 mm[Hg] - Lying Down 105.00 mm[Hg] - Lying Down 98.20 Tympanic 94.00 % 80.00/ min 026 15322 0 64.00 mm[Hg] - Lying Down 119.00 mm[Hg] - Lying Down 98.20 Forehead Scan 84.00/ min 18.00/min 026 40525 5 57.00 mm[Hg] - Sitting 126.00 mm[Hg] - Sitting 97.90 Tympanic 82.00/ min 20.00/min 026 52125 6 61.00 mm[Hg] - Lying Down 122.00 mm[Hg] - Lying Down 98.20 Tympanic 87.00/ min 18.00/min 027 65658 3 61.00 mm[Hg] - Sitting 116.00 mm[Hg] - Sitting 97.50 Forehead Scan 89.00/ min 18.00/min 027 62434 0 97.30 Tympanic 96.00 % 83.00/ min 028 51072 3 45.00 mm[Hg] - Sitting 144.00 mm[Hg] - Sitting 97.70 Tympanic 95.00 % 84.00/ min 028 07729 1 65.00 mm[Hg] - Sitting 138.00 mm[Hg] - Sitting 96.90 Forehead Scan 92.00 % 61.00/ min 029 20397 6 69.00 mm[Hg] - Sitting 126.00 mm[Hg] - Sitting 97.00 Forehead Scan 97.00 % 100.00 /min 029 32255 4 54.00 mm[Hg] - Lying Down 105.00 mm[Hg] - Lying Down 98.20 Forehead Scan 80.00/ min 030 52059 5 60.00 mm[Hg] - Lying Down 131.00 mm[Hg] - Lying Down 96.90 Forehead Scan 97.00 % 77.00/ min Immunizations Vaccine Date Status COVID-19 05/12/2020 Completed COVID-19 06/02/2020 Completed COVID-19 06/06/2020 Completed COVID-19 01/14/2021 Completed COVID-19 06/09/2021 Completed COVID-19 01/27/2022 Completed Influenza 12/11/2022 Completed (PCV13)Pneumococcal 12/24/2015 Completed (PPSV23)Pneumococcal 12/24/2015 Completed (PPSV23)Pneumococcal 05/04/2017 Completed (PCV20)Pneumococcal 07/13/2022 Completed
[2023-03-12 09:38] LABS: INR 1.1 (0.9-1.1); Partial Thromboplastin Ratio 0.9; Partial Thromboplastin Time 26 Seconds (21-31); Prothrombin Time 11.5 Seconds (9.0-12.0)
--- NOTE | 2023-03-12 10:03 | History & Physical Bridge Note ---
Date of Service March 12, 2023 History & Physical Bridge Note I have examined the patient, reviewed the History & Physical and in the interval since the performance of the History & Physical I have noted the following changes of clinical significance: no changes noted
--- NOTE | 2023-03-12 10:04 | History & Physical Report ---
Date of Service March 12, 2023 Assessment & Plan (1) Neurogenic claudication due to lumbar spinal stenosis: Plan: L3-L5 revision decompression fusion, possible kyphoplasty versus cemented hardware, extending hardware to the pelvis. History of Present Illness Chief Complaint: Worsening back and leg pain Primary Care Provider: Susana Carey DO This is a 67-year-old female well-known to [facility] status post lumbar depression fusion. Unfortunately postoperatively she had fracture of the lumbar bony an atomy and migration of hardware and is here for revision surgery. Allergies Allergy/AdvReac Type Severity Reaction Status Date / Time No Known Allergies Allergy Unknown ` Verified 03/12/23 08:56 Home Medications Medication Instructions Recorded Confirmed Type albuterol sulfate 90 mcg/actuation 1 inh inhalation Q4H PRN sob 06/15/21 03/12/23 History aerosol inhaler cholecalciferol (vitamin D3) 50 50 mcg PO QAM 06/15/21 03/12/23 History mcg (2,000 unit) capsule (Vitamin D3) magnesium 500 mg tablet 500 mg PO QAM 06/15/21 03/12/23 History niacin 500 mg tablet,extended 500 mg PO HS 06/15/21 03/12/23 History release 24 hr (Niaspan) pantoprazole 40 mg tablet,delayed 40 mg PO QAM 06/15/21 03/12/23 History release pregabalin 25 mg capsule (Lyrica) 25 mg PO TID 06/15/21 03/12/23 History atorvastatin 40 mg tablet 40 mg PO QAM 12/08/22 03/12/23 History capecitabine 500 mg tablet (Xeloda) 2,000 mg PO BID 12/08/22 03/12/23 History cyclobenzaprine 5 mg tablet 10 mg PO Q8 12/08/22 03/12/23 History docusate sodium 100 mg capsule 100 mg PO QAM 12/08/22 03/12/23 History (Colace) guaifenesin 600 mg tablet, 600 mg PO Q12H 12/08/22 03/12/23 History extended release 12 hr (Mucinex) hydrocodone 10 mg-acetaminophen 1 tab PO QID 12/08/22 03/12/23 History 325 mg tablet levothyroxine 200 mcg tablet 200 mcg PO QAM 12/08/22 03/12/23 History levothyroxine 50 mcg tablet 50 mcg PO QAM 12/08/22 03/12/23 History ondansetron 8 mg disintegrating 8 mg PO QAM 12/08/22 03/12/23 History tablet sertraline 150 mg capsule 150 mg PO QAM 12/08/22 03/12/23 History umeclidinium 62.5 mcg-vilanterol 1 inh inhalation QAM 12/08/22 03/12/23 History 25 mcg/actuation powdr for inhalation (Anoro Ellipta) doxylamine succinate 25 mg tablet 25 mg PO HS PRN Insomnia 12/14/22 03/12/23 History oxycodone 5 mg tablet 5 mg PO Q6H PRN pain #30 tabs 12/15/22 03/12/23 Rx oxycodone 5 mg tablet 5 mg PO Q6H PRN pain #30 tabs 12/18/22 03/12/23 Rx Past Med/Surg History Medical History Anxiety Smoker smokes 1 PPD Obesity Limb alert care status LUE restriction History of blood transfusion 2011 Osteoarthritis Chronic pain Hiatal hernia GERD (gastroesophageal reflux disease) Hypothyroidism Peripheral neuropathy Hyperlipidemia Lung cancer Metastatic lung cancer- dx'ed 2015 and then again 10/2020--uses daily inhaler, rarely uses rescue inhaler Mediastinal adenopathy Breast cancer -Initially dx'ed 2010- s/p left sided mastectomy -Left sided chest wall recurrence 2012- s/p side excision - Metastatic infiltrating ductal carcinoma to mediastinum and lungs in 2015status post chemo. - Was on surveillance until 08/2020- found to have recurrent metastatic pulmonary disease dx'ed by EBUS 10/2020. S/p chemo Surgical History S/P spinal surgery History of surgery Excision of left chest wound for nonhealing and infection. Dr. Briggs 07/26/2021 History of removal of Port-a-Cath Port removal. Dr. Briggs History of mastectomy left with lymph node removal History of bilateral tubal ligation S/P epidural steroid injection History of bronchoscopy History of colonoscopy History of cataract surgery bilateral Family History Other Breast cancer No family history of adverse response to anesthesia Prostate cancer Social History Smoking Status: Current some day smoker Tobacco Type: Cigarettes Cigarettes Per Day: smoking occasionally - advised; Second Hand Exposure: No; Do You Dip or Chew Tobacco: No; Tobacco Cessation Education Requested by Patient: No Hx Alcohol Use: No Hx Substance Use: No Preferred Language: Romansh Communication Ability: Effective Technical Buyer Required: No Beliefs That Will Affect Care: None Current Living Situation: Alone Other Information That Helps Us Care for You: No Feels Safe at Home: Yes Safety Concerns: Feels Safe At This Time Assistive Devices: Cane, Denture - Upper and Walker Physical Exam Physical Exam: Patient is alert and oriented Heart regular rhythm Lungs clear Results & Data Results & Data Vital Signs (Past 12 Hours) Vital Signs Temp Pulse Resp BP Pulse Ox O2 Del Method 03/12/23 09:02 Room Air 03/12/23 09:02 36.6 C 78 20 149/76 H 92 Room Air
[2023-03-12] MEDS ORDERED: BUPIVACAINE/EPINEPHRINE 0.5% MPF 1:200,000 30 ML VIAL ONE (10:11)
[2023-03-12] MEDS ORDERED: ceFAZolin 330 MG/ML 1 GM VIAL ONE (10:11)
[2023-03-12] MEDS ORDERED: ePHEDrine sulfate 50 MG/5 ML SYR ONE (10:57)
[2023-03-12] MEDS ORDERED: PHENYLEPHRINE 100MCG/ML 10ML SYR IV ONE (11:22)
[2023-03-12] MEDS ORDERED: FLOSEAL HEMOSTATIC MATRIX 10ML TOP ONE (11:32)
[2023-03-12] MEDS ORDERED: IOPAMIDOL INSTIL ONE (11:33)
[2023-03-12] MEDS ORDERED: SUGAMMADEX SODIUM 200 MG/2 ML VIAL IV ONE (12:21)
[2023-03-12] MEDS ORDERED: IOPAMIDOL INJ 61% 15 ML VIAL INSTIL ONE (12:22)
--- NOTE | 2023-03-12 12:41 | Fluoroscopy Report ---
FL lumbar spine 2-3V CLINICAL HISTORY: L3-L5 REVISION DECOMP/FUSION POSS KYPHO COMPARISON STUDY: 12/18/2022 FLUOROSCOPY TIME: 156.9 seconds FLUOROSCOPY IMAGES: 5 EXPOSURE DOSE: 104.98 mGy FINDINGS: 4 level posterior interbody esteban and screw fusion hardware with discectomy changes are noted along with bilateral iliac bolts. The hardware appears to extend from the L3-S1 levels, however exac t numbering is difficult secondary to magnification and positioning. The hardware appears intact. No unexpected opaque foreign bodies identified. Note that the images submitted following completion of t he surgery. IMPRESSION: Fluoroscopic assistance as above. ACT 112: Negative or not required by law. Electronically signed by: Lexa Ochoa M.D. 03/12/2023 12:40 PM
--- NOTE | 2023-03-12 12:53 | Operative Report ---
Post Operative Report Pre & Post Diagnosis Operation Date: 03/12/23 10:05 Pre-Op Diagnosis: L5 compression fracture with loosening of instrumentation Post-Op Diagnosis: Same I identified the patient and participated in the time-out.: Yes Procedure Operation Date: 03/12/23 10:05 Actual Procedures #1 removal of posterior instrumentation L3-L5. #2 revision decompression L4-L5. #3 revision Spira interbody cage L4-L5. #4 kyphoplasty of L5. #5 posterior spinal fusion L5-S1. #6 bilateral open SI joint fusions. #7 placement posterior instrumentation L3-S1 with bilateral iliac bolts. #8 placement of infuse collagen sponge combined with Koros in the posterior gutters L4 to to S1 and in the bilateral SI joints. Surgeon Candido Booker, Bike Shop Manager None Estimated Blood Loss 250 Findings Consistent with Post-Op Diagnosis Specimens None Indications This is a 67-year female well-known to me that status post lumbar depression fusion. Postoperatively she was doing well until she sustained a fracture of L5 with loosening instrumentation migration of the interbody construct and screws. She has significant back and leg pain and is here for revision. Description of Procedure Patient was met with identified informed consent obtained. Patient was then taken to the operative suite underwent a patient placed in a prone position the [place] table top Darinel frame. All bony promises well-padded eyes inspected to ensure no external pressure placed upon them. This point lumbar spine was prepped draped normal sterile fashion. Sharp dissection with the assistance of Bovie cautery form down to expose the instrumentation into the L3-L4-L5 as well as the S1 ala and bilateral SI joints. I then proceeded move the end caps and rods at L3-4 and 5. Noting loosening of the L5 screws they were removed without difficulty. I then performed a kyphoplasty of the L5 vertebral body by placing to 20 mm Kyphon balloons into the vertebral body sequentially inflated with fluoroscopic visualization. They were subsequently removed and approximately 6 cc of Kyphon cement injected demonstrating excellent interdigitation and fill. This was followed by placement of 2 new pedicle screws in the L5. I then performed a revision decompression L4-L5 identified the migration of the Spira interbody cage and reposition the cage into better alignment. SI bolts were then placed bilaterally with the position of fluoroscopy and I was able to open up the SI joints bilaterally. Then to subcortical bleeding bone and placed infuse collagen sponge combined with Koros directly into the SI joints bilaterally. Proper size rods were then contoured and locked into position extending from L3-S1 and attached to the iliac bolts. The transverse processes of L for L5 and the sacral ala were then burred to subcortically bone. Infuse collagen sponge, of course was placed in the posterior gutters. 15 round MELO inserted. The incision was then closed with 1 Vicryl the fascia 2-0 Vicryl subcutaneously and 4 Monocryl for final closure. Steri-Strips sterile dressings placed. Patient waken taken to PACU in stable condition. I attest to the content of the Intraoperative Record and any orders documented therein. Any exceptions are noted below.
[2023-03-12] MEDS: fentaNYL citrate PF 100 MCG/2 ML VIAL IV PRN ×4 (13:03→13:18)
--- NOTE | 2023-03-12 13:17 | Anesthesiology Progress Note ---
Date of Service March 12, 2023 Anesthesia Post Procedure Vital Signs Vital Signs: Temp Pulse Pulse Resp BP Pulse Ox O2 Del Method 03/12/23 13:15 80 21 134/71 96 Oxymask 03/12/23 13:05 80 20 140/78 96 Oxymask 03/12/23 12:58 36 C L 78 20 138/71 98 Oxymask 03/12/23 09:02 Room Air 03/12/23 09:02 36.6 C 78 20 149/76 H 92 Room Air O2 Flow Rate 03/12/23 13:15 5 03/12/23 13:05 5 03/12/23 12:58 5 03/12/23 09:02 03/12/23 09:02 Pain Intensity Bilateral Lower Back: Pain Intensity: 8 Transfer of Care Handoff Completed per policy Notes Mental Status: alert / awake / arousable and participated in evaluation Patient Amnestic to Procedure: Yes Nausea / Vomiting: adequately controlled Pain: adequately controlled Airway Patency, RR, SpO2: stable & adequate BP & HR: stable & adequate Hydration State: stable & adequate Anesthetic Complications: no major complications apparent and Pt Satisfied with anesthetic care
[2023-03-12] MEDS: HYDROmorphone INJ 1 MG/ML SYRINGE IV PRN ×6 (13:23→13:48)
[2023-03-12] MEDS: LACTATED RINGER'S 1,000 ML IV SCH ×2 (14:30→23:28)
[2023-03-12] MEDS ORDERED: diphenhydrAMINE Capsule 25 MG CAP PO PRN (14:40)
[2023-03-12] MEDS ORDERED: ACETAMINOPHEN 1,000 MG/100 ML VIAL IV PRN (14:40)
[2023-03-12] MEDS ORDERED: FAMOTIDINE 20 MG TAB PO PRN (14:40)
[2023-03-12] MEDS ORDERED: traMADol HCL 50 MG TABLET PO PRN (14:40)
[2023-03-12] MEDS ORDERED: DO NOT ADMINISTER FLU VACCINE PRN (14:40)
[2023-03-12] MEDS ORDERED: LORazepam 0.5 MG in SYRINGE 0.25 ML IV PRN (14:40)
[2023-03-12] MEDS ORDERED: METOCLOPRAMIDE HCL INJ 5 MG/ML 2 ML VIAL IV PRN (14:40)
[2023-03-12] MEDS ORDERED: hydrOXYzine HCl 25 MG TAB PO PRN (14:40)
[2023-03-12] MEDS ORDERED: bisacodyL 10 MG SUPP PR PRN (14:40)
[2023-03-12] MEDS ORDERED: PROMETHAZINE HCL 12.5 MG in SODIUM CHLORIDE 0.9% 50 ML IV PRN (14:40)
[2023-03-12] MEDS ORDERED: MAGNESIUM HYDROXIDE SUSP 30 ML UDC PO PRN (14:40)
[2023-03-12] MEDS ORDERED: HYDROmorphone INJ 0.5 MG/0.5 ML SYR IV PRN (14:40)
[2023-03-12] MEDS ORDERED: ONDANSETRON 4 MG OD TAB PO PRN (14:40)
[2023-03-12] MEDS ORDERED: NALOXONE HCL 0.4 MG/1 ML VIAL/CARP IV PRN (14:40)
[2023-03-12] MEDS ORDERED: SOD PHOSPHATE/SOD BIPHOSPHATE ENEMA 132 ML BTL PR PRN (14:40)
[2023-03-12] MEDS ORDERED: ALUMINUM/MAGNESIUM SUSP 30 ML UDC PO PRN (14:40)
[2023-03-12] MEDS ORDERED: DO NOT ADMINISTER PNEUMOCOCCAL VACCINE PRN (14:40)
[2023-03-12] MEDS ORDERED: ACETAMINOPHEN 500 MG TAB PO PRN (14:40)
[2023-03-12] MEDS: PREGABALIN 25 MG CAP PO SCH ×2 (15:01→20:32)
[2023-03-12] MEDS: oxyCODONE HCL IR 5 MG TAB (IMMEDIATE RELEASE) PO PRN ×2 (15:01→20:32)
--- NOTE | 2023-03-12 16:03 | Consultation ---
Date of Consultation March 12, 2023 Assessment & Plan (1) S/P spinal surgery: Post op management of L3- L5 revision decompression and fusion, kyphoplasty, cementing of hardware, extending hardware to pelvis by Dr. 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 Booker Reason for Consultation: Post op management of L3- L5 revision decompression and fusion, kyphoplasty, cementing of hardware, extending hardware to pelvis by Dr. Booker Attending Physician: Candido Booker, DO History of Present Illness 67-year-old female with past medical history of COPD, hypothyroidism, multiple sclerosis, breast cancer on Xeloda, smoker s/p L5 revision decompression and fusion, kyphoplasty and cementing of hardware, extending hardware to pelvis surgery performed by Dr. Booker Patient denies any symptoms at this time. Patient's concerns is about the fact that she has not brought her dosing of Xeloda and wants to reach out to her oncologist Dr. Arias Allergies Allergy/AdvReac Type Severity Reaction Status Date / Time No Known Allergies Allergy Unknown ` Verified 03/12/23 08:56 Home Medications Medication Instructions Recorded Confirmed Type albuterol sulfate 90 mcg/actuation 1 inh inhalation Q4H PRN sob 06/15/21 03/12/23 History aerosol inhaler cholecalciferol (vitamin D3) 50 50 mcg PO QAM 06/15/21 03/12/23 History mcg (2,000 unit) capsule (Vitamin D3) magnesium 500 mg tablet 500 mg PO QAM 06/15/21 03/12/23 History niacin 500 mg tablet,extended 500 mg PO HS 06/15/21 03/12/23 History release 24 hr (Niaspan) pantoprazole 40 mg tablet,delayed 40 mg PO QAM 06/15/21 03/12/23 History release pregabalin 25 mg capsule (Lyrica) 25 mg PO TID 06/15/21 03/12/23 History atorvastatin 40 mg tablet 40 mg PO QAM 12/08/22 03/12/23 History capecitabine 500 mg tablet (Xeloda) 2,000 mg PO BID 12/08/22 03/12/23 History cyclobenzaprine 5 mg tablet 10 mg PO Q8 12/08/22 03/12/23 History docusate sodium 100 mg capsule 100 mg PO QAM 12/08/22 03/12/23 History (Colace) guaifenesin 600 mg tablet, 600 mg PO Q12H 12/08/22 03/12/23 History extended release 12 hr (Mucinex) hydrocodone 10 mg-acetaminophen 1 tab PO QID 12/08/22 03/12/23 History 325 mg tablet levothyroxine 200 mcg tablet 200 mcg PO QAM 12/08/22 03/12/23 History levothyroxine 50 mcg tablet 50 mcg PO QAM 12/08/22 03/12/23 History ondansetron 8 mg disintegrating 8 mg PO QAM 12/08/22 03/12/23 History tablet sertraline 150 mg capsule 150 mg PO QAM 12/08/22 03/12/23 History umeclidinium 62.5 mcg-vilanterol 1 inh inhalation QAM 12/08/22 03/12/23 History 25 mcg/actuation powdr for inhalation (Anoro Ellipta) doxylamine succinate 25 mg tablet 25 mg PO HS PRN Insomnia 12/14/22 03/12/23 History oxycodone 5 mg tablet 5 mg PO Q6H PRN pain #30 tabs 12/15/22 03/12/23 Rx oxycodone 5 mg tablet 5 mg PO Q6H PRN pain #30 tabs 12/18/22 03/12/23 Rx Patient History Medical History Anxiety Smoker smokes 1 PPD Obesity Limb alert care status LUE restriction History of blood transfusion 2011 Osteoarthritis Chronic pain Hiatal hernia GERD (gastroesophageal reflux disease) Hypothyroidism Peripheral neuropathy Hyperlipidemia Lung cancer Metastatic lung cancer- dx'ed 2015 and then again 10/2020--uses daily inhaler, rarely uses rescue inhaler Mediastinal adenopathy Breast cancer -Initially dx'ed 2010- s/p left sided mastectomy -Left sided chest wall recurrence 2012- s/p side excision - Metastatic infiltrating ductal carcinoma to mediastinum and lungs in 2016status post chemo. - Was on surveillance until 08/2020- found to have recurrent metastatic pulmonary disease dx'ed by [facility] 10/2020. S/p chemo Surgical History S/P spinal surgery History of surgery Excision of left chest wound for nonhealing and infection. Dr. Briggs 07/26/2021 History of removal of Port-a-Cath Port removal. Dr. Briggs History of mastectomy left with lymph node removal History of bilateral tubal ligation S/P epidural steroid injection History of bronchoscopy History of colonoscopy History of cataract surgery bilateral Family History Other Breast cancer No family history of adverse response to anesthesia Prostate cancer Social History Smoking Status: Current some day smoker Tobacco Type: Cigarettes Cigarettes Per Day: smoking occasionally - advised; Second Hand Exposure: No; Do You Dip or Chew Tobacco: No; Tobacco Cessation Education Requested by Patient: No Hx Alcohol Use: No Hx Substance Use: No Preferred Language: Icelandic Communication Ability: Effective Oracle Database Administrator Required: No Beliefs That Will Affect Care: None Current Living Situation: Alone Other Information That Helps Us Care for You: No Feels Safe at Home: Yes Safety Concerns: Feels Safe At This Time Assistive Devices: Cane, Denture - Upper and Walker Review of Systems Review of Systems: As noted in H&P, rest reviewed as negative Physical Exam Physical Exam: HEENT:No JVD , Normocephalic , atraumatic CV: S1/S2+ , no murmurs Resp: Air entry present bilaterally.no crackles, no wheeze . GI: Abdomen soft non tender . Musculoskeletal: examined for joint tenderness. Skin: no rashes Psych: Normal affect Neuro: Patient is awake alert not in distress , No focal neuro deficits noted Ext: no edema. Results & Data Vital Signs (Past 12 Hours) Vital Signs Temp Pulse Pulse Resp BP Pulse Ox O2 Del Method 03/12/23 15:30 36.7 C 77 16 124/71 96 Nasal Cannula 03/12/23 15:09 36.5 C 75 16 128/77 97 Nasal Cannula 03/12/23 14:40 Nasal Cannula 03/12/23 14:40 36.7 C 76 18 115/76 96 Nasal Cannula 03/12/23 14:05 73 17 121/70 93 Nasal Cannula 03/12/23 13:55 37 C 73 17 113/56 L 94 Nasal Cannula 03/12/23 13:45 76 23 104/67 95 Nasal Cannula 03/12/23 13:35 82 19 128/75 96 Nasal Cannula 03/12/23 13:25 79 16 129/92 96 Nasal Cannula 03/12/23 13:15 80 21 134/71 96 Oxymask 03/12/23 13:05 80 20 140/78 96 Oxymask 03/12/23 12:58 36 C L 78 20 138/71 98 Oxymask 03/12/23 09:02 Room Air 03/12/23 09:02 36.6 C 78 20 149/76 H 92 Room Air O2 Flow Rate 03/12/23 15:30 2 03/12/23 15:09 2 03/12/23 14:40 2 03/12/23 14:40 2 03/12/23 14:05 2 03/12/23 13:55 2 03/12/23 13:45 4 03/12/23 13:35 4 03/12/23 13:25 4 03/12/23 13:15 5 03/12/23 13:05 5 03/12/23 12:58 5 03/12/23 09:02 03/12/23 09:02 Laboratory Results 03/12/23 08:47 PT 11.5 INR 1.1 APTT 26 PTT Ratio 0.9 Blood Type O Positive Antibody Screen NEGATIVE Crossmatch See Detail Diagnostic Findings Laboratory Results PT 11.5 Seconds (9.0-12.0) 03/12/23 08:47 INR 1.1 (0.9-1.1) 03/12/23 08:47 APTT 26 Seconds (21-31) 03/12/23 08:47 PTT Ratio 0.9 03/12/23 08:47 Blood Type O Positive 03/12/23 08:47 Antibody Screen NEGATIVE 03/12/23 08:47 Crossmatch See Detail 03/12/23 08:47 Impressions Lumbar Spine X-Ray 03/12/23 07:00 FL lumbar spine 2-3V CLINICAL HISTORY: L3-L5 REVISION DECOMP/FUSION POSS KYPHO COMPARISON STUDY: 12/18/2022 FLUOROSCOPY TIME: 156.9 seconds FLUOROSCOPY IMAGES: 5 EXPOSURE DOSE: 104.98 mGy FINDINGS: 4 level posterior interbody esteban and screw fusion hardware with discectomy changes are noted along with bilateral iliac bolts. The hardware appears to extend from the L3-S1 levels, however exact numbering is difficult secondary to magnification and positioning. The hardware appears intact. No u nexpected opaque foreign bodies identified. Note that the images submitted following completion of the surgery. IMPRESSION: Fluoroscopic assistance as above. ACT 112: Negative or not required by law. Electronically signed by: Lexa Ohcoa M.D. 03/12/2023 12:40 PM Medications Administered Home Medications Medication Instructions Recorded Confirmed albuterol sulfate 90 mcg/actuation 1 inh inhalation Q4H PRN sob 06/15/21 03/12/23 aerosol inhaler cholecalciferol (vitamin D3) 50 50 mcg PO QAM 06/15/21 03/12/23 mcg (2,000 unit) capsule (Vitamin D3) magnesium 500 mg tablet 500 mg PO QAM 06/15/21 03/12/23 niacin 500 mg tablet,extended 500 mg PO HS 06/15/21 03/12/23 release 24 hr (Niaspan) pantoprazole 40 mg tablet,delayed 40 mg PO QAM 06/15/21 03/12/23 release pregabalin 25 mg capsule (Lyrica) 25 mg PO TID 06/15/21 03/12/23 atorvastatin 40 mg tablet 40 mg PO QAM 12/08/22 03/12/23 capecitabine 500 mg tablet (Xeloda) 2,000 mg PO BID 12/08/22 03/12/23 cyclobenzaprine 5 mg tablet 10 mg PO Q8 12/08/22 03/12/23 docusate sodium 100 mg capsule 100 mg PO QAM 12/08/22 03/12/23 (Colace) guaifenesin 600 mg tablet, 600 mg PO Q12H 12/08/22 03/12/23 extended release 12 hr (Mucinex) hydrocodone 10 mg-acetaminophen 1 tab PO QID 12/08/22 03/12/23 325 mg tablet levothyroxine 200 mcg tablet 200 mcg PO QAM 12/08/22 03/12/23 levothyroxine 50 mcg tablet 50 mcg PO QAM 12/08/22 03/12/23 ondansetron 8 mg disintegrating 8 mg PO QAM 12/08/22 03/12/23 tablet sertraline 150 mg capsule 150 mg PO QAM 12/08/22 03/12/23 umeclidinium 62.5 mcg-vilanterol 1 inh inhalation QA 12/08/22 03/12/23 25 mcg/actuation powdr for inhalation (Anoro Ellipta) doxylamine succinate 25 mg tablet 25 mg PO HS PRN Insomnia 12/14/22 03/12/23 Previous Rx's Medication Instructions Recorded oxycodone 5 mg tablet 5 mg PO Q6H PRN pain #30 tabs 12/15/22 oxycodone 5 mg tablet 5 mg PO Q6H PRN pain #30 tabs 12/18/22
[2023-03-12] MEDS: ceFAZolin 2000MG 2,000 MG/15 ML SYR IV SCH (17:54)
[2023-03-12] MEDS: DOCUSATE SODIUM/SENNA 50/8.6MG TAB PO SCH (20:28)
[2023-03-12] MEDS: guaiFENesin 600 MG TABCR PO SCH (20:29)
[2023-03-12] MEDS: NIACIN EXTENDED REL 500 MG TABCR PO SCH (20:29)
[2023-03-13] MEDS: ceFAZolin 2000MG 2,000 MG/15 ML SYR IV SCH (01:09)
[2023-03-13] MEDS: oxyCODONE HCL IR 5 MG TAB (IMMEDIATE RELEASE) PO PRN ×4 (03:06→20:13)
[2023-03-13] MEDS: POLYETHYLENE (MIRALAX) 17 GM PACK PO SCH ×4 (05:46→22:50)
[2023-03-13] MEDS: LEVOTHYROXINE SODIUM 50 MCG TABLET PO SCH (05:46)
[2023-03-13] MEDS: LEVOTHYROXINE SODIUM 200 MCG TABLET PO SCH (05:46)
[2023-03-13 06:19] LABS: Basophils # (auto) 0.02 K/uL (0.00-0.20); Basophils % (auto) 0.3 %; Eosinophils # (auto) 0.03 K/uL (0.00-0.50); Eosinophils % (auto) 0.4 %; Hematocrit (blood only) 31.8 % (37.0-47.0); Hemoglobin 10.9 g/dl (12.0-16.0); Immature Granulocytes # (auto) 0.02 K/uL (0.01-0.20); Immature Granulocytes % (auto) 0.3 %; Lymphocytes # (auto) 2.04 K/uL (1.20-3.40); Lymphocytes % (auto) 26.8 %; Mean Corpuscular Hemoglobin 38.5 pg (25.0-34.0); Mean Corpuscular Hgb Conc 34.3 g/dL (32.0-36.0); Mean Corpuscular Volume 112.4 fL (80.0-100.0); Mean Platelet Volume 9.9 fL (9.4-12.4); Monocytes # (auto) 0.69 K/uL (0.11-0.59); Monocytes % (auto) 9.1 %; Neutrophils # (auto) 4.82 K/uL (1.40-6.50); Neutrophils % (auto) 63.1 %; Platelet Count 136 K/uL (130-400); RDW Coefficient of Variation 14.6 % (11.5-14.5); RDW Standard Deviation 60.7 fL (36.4-46.3); Red Blood Count 2.83 M/uL (4.20-5.40); White Blood Count 7.62 K/ul (4.8-10.8)
[2023-03-13 06:31] LABS: BUN Creatinine Ratio 18.3 (10-20); Calcium 8.8 mg/dl (8.6-10.3); Creatinine Clr Calc Pharmacy 84.2 ml/min; Est GFR (African American) 102.2 ml/min; Est GFR (Non-African American) 88.1 ml/min; Potassium 3.9 mmol/L (3.5-5.1)
[2023-03-13 06:42] LABS: Macrocytosis Present; Polychromasia 1+
[2023-03-13] MEDS: SERTRALINE HCL 50 MG TABLET PO SCH (08:18)
[2023-03-13] MEDS: SERTRALINE HCL 100 MG TABLET PO SCH (08:18)
[2023-03-13] MEDS: dexAMETHasone 6 MG in SYRINGE 0 ML IV SCH (08:18)
[2023-03-13] MEDS: guaiFENesin 600 MG TABCR PO SCH ×2 (08:19→20:13)
[2023-03-13] MEDS: PANTOprazole 40 MG TAB PO SCH (08:19)
[2023-03-13] MEDS: CHOLECALCIFEROL 1,000 UNITS 25 MCG TAB PO SCH (08:19)
[2023-03-13] MEDS: ATORVASTATIN 40 MG TAB PO SCH (08:19)
[2023-03-13] MEDS: PREGABALIN 25 MG CAP PO SCH ×3 (08:22→20:13)
[2023-03-13] MEDS ORDERED: NON-FORMULARY MEDICATION (Magnesium 500 mg Tablet) PO SCH (09:00)
--- NOTE | 2023-03-13 10:17 | Orthopedic Progress Note ---
Date of Service March 13, 2023 Assessment & Plan (1) Neurogenic claudication due to lumbar spinal stenosis: Plan: At this time we will continue physical therapy monitor MELO output anticipate discharge home later this week. Admission and Anticipated Discharge Date Admission Date: March 12, 2023 Subjective Patient's back pain is controlled leg symptoms markedly improved. She is tolerating physical therapy. Physical Exam Physical Exam: Patient is ambulating the halls. She is good strength testing. Is comfortable. Results & Data Vital Signs (Past 12 Hours) Vital Signs Temp Pulse Resp BP Pulse Ox O2 Del Method 03/13/23 07:52 36.7 C 78 16 106/58 L 95 Room Air 03/13/23 02:22 36.6 C 75 16 121/76 94 Room Air 03/12/23 23:10 37.0 C 70 16 133/74 95 Room Air
--- NOTE | 2023-03-13 14:38 | Hospitalist Progress Note ---
Date of Service March 13, 2023 Assessment & Plan (1) S/P spinal surgery: Plan: Post op management of L3- L5 revision decompression and fusion, kyphoplasty, cementing of hardware, extending hardware to pelvis by Dr. Booker Pain management. Nausea control. PT/OT and DVT chemoprophylaxis per primary. (2) Anxiety: Plan: Continue sertraline (3) Hypothyroidism: Plan: Continue levothyroxine (4) Hyperlipidemia: Plan: Continue atorvastatin (5) DCIS (ductal carcinoma in situ) of breast: Plan: Follow-up with oncology upon discharge. (6) Tobacco abuse: Plan: Cessation counseling (7) Obesity: (8) Lung cancer: (9) Breast cancer: Plan Thank you for this consultation We will follow this patient along with you during the hospital stay Admission and Anticipated Discharge Date Admission Date: March 12, 2023 Subjective Patient was seen and examined at bedside. Patient was lying in bed, on room air, resting comfortably, NAD. Patient reports improvement in her BLE radicular symptoms. Operative site pain under control. Patient reports ambulating around well, is very happy that her pain is controlled. Physical Exam Physical Exam: HEENT:No JVD , Normocephalic , atraumatic CV: S1/S2+ , no murmurs Resp: Air entry present bilaterally.no crackles, no wheeze . GI: Abdomen soft non tender . Musculoskeletal: examined for joint tenderness. Skin: no rashes Psych: Normal affect Neuro: Patient is awake alert not in distress , No focal neuro deficits noted Ext: no edema. MELO drain with moderate serosanguineous collection noted. Lower back with clean dressing without soakage. Urinary catheter with light yellow urine collection noted. Results & Data Results & Data Vital Signs (Past 12 Hours) Vital Signs Temp Pulse Resp BP Pulse Ox O2 Del Method 03/13/23 11:08 36.8 C 80 16 113/67 94 Room Air 03/13/23 07:52 36.7 C 78 16 106/58 L 95 Room Air
[2023-03-13] MEDS: DOCUSATE SODIUM/SENNA 50/8.6MG TAB PO SCH (20:10)
[2023-03-13] MEDS: NIACIN EXTENDED REL 500 MG TABCR PO SCH (20:13)
[2023-03-13] MEDS: LORazepam 0.5 MG TAB PO PRN ×2 (21:21→22:57)
[2023-03-13] MEDS: HYDROmorphone INJ 1 MG/ML SYRINGE IV PRN (22:57)
[2023-03-14] MEDS: POLYETHYLENE (MIRALAX) 17 GM PACK PO SCH ×4 (04:40→23:20)
[2023-03-14] MEDS: HYDROmorphone INJ 1 MG/ML SYRINGE IV PRN ×2 (04:46→23:19)
[2023-03-14] MEDS: LEVOTHYROXINE SODIUM 200 MCG TABLET PO SCH (05:43)
[2023-03-14] MEDS: LEVOTHYROXINE SODIUM 50 MCG TABLET PO SCH (05:43)
[2023-03-14 06:19] LABS: Hematocrit (blood only) 29.9 % (37.0-47.0); Hemoglobin 10.3 g/dl (12.0-16.0); Mean Corpuscular Hemoglobin 38.7 pg (25.0-34.0); Mean Corpuscular Hgb Conc 34.4 g/dL (32.0-36.0); Mean Corpuscular Volume 112.4 fL (80.0-100.0); Platelet Count 126 K/uL (130-400); RDW Coefficient of Variation 14.9 % (11.5-14.5); RDW Standard Deviation 61.9 fL (36.4-46.3); Red Blood Count 2.66 M/uL (4.20-5.40); White Blood Count 8.02 K/ul (4.8-10.8)
[2023-03-14 06:32] LABS: BUN Creatinine Ratio 19.3 (10-20); Calcium 8.4 mg/dl (8.6-10.3); Est GFR (African American) 84.6 ml/min; Potassium 3.8 mmol/L (3.5-5.1)
[2023-03-14] MEDS: PANTOprazole 40 MG TAB PO SCH (08:08)
[2023-03-14] MEDS: dexAMETHasone 6 MG in SYRINGE 0 ML IV SCH (08:08)
[2023-03-14] MEDS: SERTRALINE HCL 50 MG TABLET PO SCH (08:08)
[2023-03-14] MEDS: guaiFENesin 600 MG TABCR PO SCH ×2 (08:08→20:31)
[2023-03-14] MEDS: SERTRALINE HCL 100 MG TABLET PO SCH (08:09)
[2023-03-14] MEDS: CHOLECALCIFEROL 1,000 UNITS 25 MCG TAB PO SCH (08:09)
[2023-03-14] MEDS: ATORVASTATIN 40 MG TAB PO SCH (08:09)
--- NOTE | 2023-03-14 08:12 | Orthopedic Progress Note ---
Date of Service March 14, 2023 Assessment & Plan (1) Neurogenic claudication due to lumbar spinal stenosis: Plan: Mica is postoperative day 2 status post revision hardware L3-S1 1 including iliac bolts. Will continue with physical therapy and ambulation today. Maintain MELO drain. Continue with pain control. DVT prophylaxis is in the form of teds and SCDs. Anticipate discharge home with home nursing within the next couple of days. Admission and Anticipated Discharge Date Admission Date: March 12, 2023 Subjective Mica is postoperative day 2 status post hardware revision L3 to the pelvis. She feels much better. Preoperative pain has resolved. H&H are 10.3 and 29.9 respectively. MELO drain output last shift was at 35 cc. Yesterday in physical therapy Ambulating 375 feet. She is passing flatus but no bowel movement. Review of Systems Review of Systems: All systems reviewed & are unremarkable except as noted in HPI & below Physical Exam Physical Exam: Alert and oriented x 3 Laying in bed in no acute distress Lumbar dressing is clean dry and intact with functioning MELO drain Calves soft and nontender bilaterally strength intact bilateral lower extremities Results & Data Vital Signs (Past 12 Hours) Vital Signs Temp Pulse Resp BP Pulse Ox O2 Del Method 03/14/23 07:11 36.8 C 77 18 109/70 94 Room Air 03/13/23 21:36 37.2 C 82 16 109/66 97 Room Air
[2023-03-14] MEDS: PREGABALIN 25 MG CAP PO SCH ×3 (08:16→20:31)
[2023-03-14] MEDS: oxyCODONE HCL IR 5 MG TAB (IMMEDIATE RELEASE) PO PRN ×2 (08:16→14:56)
--- NOTE | 2023-03-14 16:43 | Hospitalist Progress Note ---
Date of Service March 14, 2023 Assessment & Plan (1) S/P spinal surgery: Plan: Post op management of L3- L5 revision decompression and fusion, kyphoplasty, cementing of hardware, extending hardware to pelvis by Dr. Booker Pain management. Nausea control. PT/OT and DVT chemoprophylaxis per primary. 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 (6) Tobacco abuse: Plan: Cessation counseling (7) Obesity: (8) Lung cancer: (9) Breast cancer: Plan Thank you for this consultation We will follow this patient along with you during the hospital stay Admission and Anticipated Discharge Date Admission Date: March 12, 2023 Subjective Denies any acute concerns, notes feeling more tired today than yesterday, but otherwise pain is controlled and still feeling well Eating lunch in bedside chair, conversational and pleasant Physical Exam Constitutional: sitting in bedside chair, eating well Respiratory: normal respiratory effort, lungs clear to auscultation Results & Data Results & Data Vital Signs (Past 12 Hours) Vital Signs Temp Pulse Resp BP Pulse Ox O2 Del Method 03/14/23 13:33 37.1 C 85 16 125/70 96 Room Air 03/14/23 07:25 Room Air 03/14/23 07:11 36.8 C 77 18 109/70 94 Room Air Laboratory Results Short CBC 03/14/23 Range/Units 05:57 WBC 8.02 (4.8-10.8) K/ul Hgb 10.3 L (12.0-16.0) g/dl Hct 29.9 L (37.0-47.0) % Plt Count 126 L (130-400) K/uL BMP 03/14/23 05:57 Sodium 136 Potassium 3.8 Chloride 102 Carbon Dioxide 30 BUN 16 Creatinine 0.83 Glucose 129 H Calcium 8.4 L Medications Administered Home Medications Medication Instructions Recorded Confirmed Last Taken albuterol sulfate 90 mcg/actuation 1 inh inhalation Q4H PRN sob 06/15/21 03/12/23 07/26/21 03:30 aerosol inhaler cholecalciferol (vitamin D3) 50 50 mcg PO QAM 06/15/21 03/12/23 03/11/23 09:00 mcg (2,000 unit) capsule (Vitamin D3) magnesium 500 mg tablet 500 mg PO QAM 06/15/21 03/12/23 03/11/23 09:00 niacin 500 mg tablet,extended 500 mg PO HS 06/15/21 03/12/23 03/11/23 22:00 release 24 hr (Niaspan) pantoprazole 40 mg tablet,delayed 40 mg PO QAM 06/15/21 03/12/23 03/11/23 09:00 release pregabalin 25 mg capsule (Lyrica) 25 mg PO TID 06/15/21 03/12/23 03/11/23 22:00 atorvastatin 40 mg tablet 40 mg PO QAM 12/08/22 03/12/23 03/11/23 09:00 capecitabine 500 mg tablet (Xeloda) 2,000 mg PO BID 12/08/22 03/12/23 03/12/23 08:30 cyclobenzaprine 5 mg tablet 10 mg PO Q8 12/08/22 03/12/23 03/11/23 09:00 docusate sodium 100 mg capsule 100 mg PO QA 12/08/22 03/12/23 03/11/23 09:00 (Colace) guaifenesin 600 mg tablet, 600 mg PO Q12H 12/08/22 03/12/23 03/11/23 22:00 extended release 12 hr (Mucinex) hydrocodone 10 mg-acetaminophen 1 tab PO QID 12/08/22 03/12/23 03/12/23 07:00 325 mg tablet levothyroxine 200 mcg tablet 200 mcg PO QA 12/08/22 03/12/23 03/11/23 09:00 levothyroxine 50 mcg tablet 50 mcg PO QA 12/08/22 03/12/23 03/11/23 09:00 ondansetron 8 mg disintegrating 8 mg PO QA 12/08/22 03/12/23 03/11/23 09:00 tablet sertraline 150 mg capsule 150 mg PO QA 12/08/22 03/12/23 03/11/23 09:00 umeclidinium 62.5 mcg-vilanterol 1 inh inhalation [facility] 12/08/22 03/12/23 12/13/22 09:00 25 mcg/actuation powdr for inhalation (Anoro Ellipta) doxylamine succinate 25 mg tablet 25 mg PO HS PRN Insomnia 12/14/22 03/12/23 03/11/23 22:00 oxycodone 5 mg tablet 5 mg PO Q6H PRN pain #30 tabs 12/15/22 03/12/23 Unknown oxycodone 5 mg tablet 5 mg PO Q6H PRN pain #30 tabs 12/18/22 03/12/23 Unknown oxycodone 5 mg tablet 5 mg PO Q6H PRN pain #30 tabs 03/13/23 Unknown tramadol 50 mg tablet 50 mg PO Q6H PRN pain, moderate 03/13/23 Unknown #30 tabs Active Medications Generic Name Dose Route Start Last Admin Trade Name Freq PRN Reason Stop Dose Admin Atorvastatin Calcium 40 mg 03/13/23 09:00 03/14/23 08:09 Atorvastatin 40 Mg Tab PO 04/12/23 08:59 40 mg QAM HALEY Administration Guaifenesin 600 mg 03/12/23 21:00 03/14/23 08:08 Guaifenesin 600 Mg Tabcr PO 04/11/23 20:59 600 mg Q12 HALEY Administration Hydromorphone HCl 1 mg 03/12/23 14:40 03/14/23 04:46 Hydromorphone Inj 1 Mg/Ml Syringe IV 03/26/23 14:39 1 mg Q3H PRN Administration SEVERE Pain (Scale 7,8,9,10) Dexamethasone 6 mg/ Syringe 1.5 mls @ 1 mls/min 03/13/23 09:00 03/14/23 08:08 IV 03/15/23 09:02 1 mls/min DAILY HALEY Administration Levothyroxine Sodium 50 mcg 03/13/23 06:30 03/14/23 05:43 Levothyroxine Sodium 50 Mcg Tablet PO 04/12/23 06:29 50 mcg DAILYBB HALEY Administration Levothyroxine Sodium 200 mcg 03/13/23 06:30 03/14/23 05:43 Levothyroxine Sodium 200 Mcg Tablet PO 04/12/23 06:29 200 mcg DAILYBB HALEY Administration Lorazepam 0.5 mg 03/12/23 14:40 03/13/23 22:57 Lorazepam 0.5 Mg Tab PO 04/11/23 14:39 0.5 mg Q8H PRN Administration Sedation/Anxiety Miscellaneous 1 each 03/12/23 16:00 03/14/23 08:09 Order Awaiting Action: Doxylamine N/A 04/11/23 15:59 Not Given QS HALEY Niacin 500 mg 03/12/23 21:00 03/13/23 20:13 Niacin Extended Rel 500 Mg Tabcr PO 04/11/23 20:59 500 mg HS HALEY Administration Ondansetron HCl 4 mg 03/12/23 14:40 03/13/23 00:09 Ondansetron Inj 2 Mg/Ml 2 Ml Vial IV 04/11/23 14:39 4 mg Q6H PRN Administration Nausea &/or Vomiting Oxycodone HCl 5 - 10 mg 03/12/23 14:40 03/14/23 14:56 Oxycodone Hcl Ir 5 Mg Tab (Immediate Release) PO 03/26/23 14:39 10 mg Q4H PRN Administration Pain & Pre PT Pantoprazole Sodium 40 mg 03/13/23 09:00 03/14/23 08:08 Pantoprazole 40 Mg Tab PO 04/12/23 08:59 40 mg QAM HALEY Administration Polyethylene Glycol 17 gm 03/13/23 06:00 03/14/23 12:10 Polyethylene (Miralax) 17 Gm Pack PO 04/12/23 05:59 Not Given Q6 HALEY Pregabalin 25 mg 03/12/23 15:00 03/14/23 14:53 Pregabalin 25 Mg Cap PO 04/11/23 14:59 25 mg TID HALEY Administration Senna/Docusate Sodium 2 tab 03/12/23 21:00 03/13/23 20:10 Docusate Sodium/Senna 50/8.6mg Tab PO 04/11/23 20:59 Not Given HS HALEY Sertraline HCl 100 mg 03/13/23 09:00 03/14/23 08:09 Sertraline Hcl 100 Mg Tablet PO 04/12/23 08:59 100 mg QAM HALEY Administration Sertraline HCl 50 mg 03/13/23 09:00 03/14/23 08:08 Sertraline Hcl 50 Mg Tablet PO 04/12/23 08:59 50 mg QAM HALEY Administration Vitamin D 2,000 units 03/13/23 09:00 03/14/23 08:09 Cholecalciferol 1,000 Units 25 Mcg Tab PO 04/12/23 08:59 2,000 units QAM [facility] Administration
[2023-03-14] MEDS: NIACIN EXTENDED REL 500 MG TABCR PO SCH (20:31)
[2023-03-14] MEDS: DOCUSATE SODIUM/SENNA 50/8.6MG TAB PO SCH (20:31)
[2023-03-14 22:43] VITALS: RESP 18; TEMP 98.1
[2023-03-15] MEDS: POLYETHYLENE (MIRALAX) 17 GM PACK PO SCH (05:05)
[2023-03-15] MEDS: oxyCODONE HCL IR 5 MG TAB (IMMEDIATE RELEASE) PO PRN (05:06)
[2023-03-15] MEDS: LEVOTHYROXINE SODIUM 200 MCG TABLET PO SCH (05:08)
[2023-03-15] MEDS: LEVOTHYROXINE SODIUM 50 MCG TABLET PO SCH (05:08)
[2023-03-15 07:22] VITALS: BP 126/66; PULSE 76; O2SAT 95
[2023-03-15] MEDS: guaiFENesin 600 MG TABCR PO SCH (07:53)
[2023-03-15] MEDS: dexAMETHasone 6 MG in SYRINGE 0 ML IV SCH (07:53)
[2023-03-15] MEDS: CHOLECALCIFEROL 1,000 UNITS 25 MCG TAB PO SCH (07:53)
[2023-03-15] MEDS: PANTOprazole 40 MG TAB PO SCH (07:53)
[2023-03-15] MEDS: SERTRALINE HCL 100 MG TABLET PO SCH (07:54)
[2023-03-15] MEDS: SERTRALINE HCL 50 MG TABLET PO SCH (07:54)
[2023-03-15] MEDS: ATORVASTATIN 40 MG TAB PO SCH (07:54)
[2023-03-15] MEDS: PREGABALIN 25 MG CAP PO SCH (07:58)
--- NOTE | 2023-03-15 09:25 | Discharge Summary ---
Date of Service March 15, 2023 Admission HPI Per Admitting Provider This is a 67-year-old female well-known to me status post lumbar depression fusion. Unfortunately postoperatively she had fracture of the lumbar bony anatomy and migration of hardware and is here for revision surgery. Principal Diagnosis Lumbar spinal stenosis with neurogenic claudication and failed hardware with fracture of L5 Discharge Data Allergies Allergy/AdvReac Type Severity Reaction Status Date / Time No Known Allergies Allergy Unknown ` Verified 03/12/23 08:56 Consultations 03/12/23 14:40 Consult Hospitalist Routine Procedures Performed Operation Date: 03/12/23 10:05 Actual Procedures p L3-5 Revision Decompression and Fusion, Kyphoplasty,Cementing of Hardware, Extending Hardware to Pelvis (Not Applicable) - Candido Booker DO Ordered Studies 03/12/23 07:00 [place] lumbar spine 2-3V Routine Hospital Course (1) Neurogenic claudication due to lumbar spinal stenosis: Patient underwent revision decompression fusion Chuck Mir taken orthopedic for postop labor postop patient progressed appropriate. MELO drain decreasing well. Pain controlled. Excellent strength testing. Simply discharged home. Discharge orders and instructions found in chart for further review. Total Time Total Time Spent Total Time Spent (In Minutes): 20 minutes Discharge Plan Discharge Items Patient Disposition: Home - Self-Care Reason For Visit: Closed non-displaced zone I fracture of sacrum, Discharge Diagnosis: L5 fracture with hardware displacement Activity: As commented below Non-emergency contact: Primary Care Provider Call non-emergency contact if: you have any medication questions Follow-up/Referrals: Susana Carey DO [Primary Care Provider] - Diet: Regular Addtl Attending Provider Instructions: ACTIVITY RECOMMENDATIONS: SELF CARE INSTRUCTIONS AFTER THORACIC/LUMBAR FUSIONS 1. You may walk to your tolerance. It is good exercise for your legs and back. Expect some back and intermittent leg aches and pains. 2. You may perform "counter-top" level activities (make a sandwich, timi with a project, etc.). 3. No bending or lifting of more than 10 pounds or back twisting of any nature (roll like a log when turning in bed). 4. You may ride in a car for 20-30 minutes at a time. No driving until after your first visit with your doctor. 5. Frequent changes of position and restricting sitting to 30 minutes at a time will help limit the amount of back spasms and stiffness you may experience. 6. You may discontinue the use of ambulatory aids (cane, crutches, etc.) once your strength and confidence allow. 7. You may skilled nursing case manager the shower and let water strike your incision when you arrive home at least once daily. Do not take a tub bath, sit in a hot tub or go into a swimming pool until after your first recheck in the office. SPECIAL CARE INSTRUCTIONS: VERY IMPORTANT TO READ AND REVIEW A. Your surgical incision has been closed with a cosmetic suture under the skin that will dissolve in about 6 weeks. In 14 days, you can use a pair of clean scissors and cut the suture that is left outside of the skin at the ends of your incision. 1. The small skin tapes can be removed 7 days after surgery if they have not fallen off by that point. 2. You may keep the wound open to air as much as possible to promote healing after post-op day number 5 unless told otherwise by your doctor. 3. If you think the wound looks like it is becoming infected (redness or worsening drainage) and/or you are experiencing fever, chill or worsening back pain and muscle spasms, contact the office so that we may evaluate you as soon as possible. B. Complications are uncommon, but please contact us if you have any signs or symptoms of: 1. wound infection (fever higher than 102.5 degrees F, redness, separation of wound, drainage, or increasing pain from the incision) 2. blood clots in legs (pain, swelling, redness and warmth in legs) 3. urinary tract infection (fever higher than 102.5 degrees F, burning upon urination or increased frequency of urination) 4. nerve problems (inability to walk on your toes or heels, numbness, loss of bowel or bladder control) 5. any other symptoms that concern you C. Please call the office at if you have any concerns or questions about your operation or recovery. D. No smoking! Smoking drastically decreases the chance of a solid fusion. E. Do not take any anti-inflammatory medications (Indocin, Advil, Motrin, Aspirin, Naprosyn, etc.) as these may inhibit the chance of a solid fusion. Tylenol is okay to take for pain. MANAGING PAIN AFTER SPINAL SURGERY 1. Narcotic medication is intended for short-term use and will be provided for surgical pain. Surgical pain usually lasts for a period of 4-6 weeks. Narcotic medication includes Percocet, Vicodin, Darvocet, Tylenol #3 or Lortab. 2. Longer-term pain is more appropriately treated with non-narcotic medication such as Tylenol ES. 3. Muscle spasm is not appropriately treated with narcotics. Muscle relaxers such as Soma, Flexeril or Skelaxin can be used along with Tylenol ES. 4. Remember that we all live with some "aches and pains". This is not unusual or uncommon after an injury or as we get older. a. Back pain is expected and may include muscle spasms for 4 to 6 weeks after surgery. The pain should gradually improve. If the pain worsens for no apparent reason, please contact the office. b. Intermittent leg pain may also be experienced and should not be concerned about unless it worsens for no apparent reason. If so, please contact the office. 5. We will provide appropriate medication within the normal guidelines of their prescribed use. We will also be very cautious and aware of potential abuse and extended duration of patients' medication needs. a. Pain medications are for your comfort and to assist with sleep and rest so that the tissue can heal. They are not provided in order to return to normal activity and should not be used through the day. To do so or worsening pain at night can result from ongoing tissue damage and development of tolerance to the prescribed medicine. 6. Please allow 2-3 days to process refills. Prescriptions will not be mailed but must be picked up at the office. FOLLOW UP VISIT: Keep your scheduled follow-up appointment. Any questions, please call the office at . Pending Studies at Discharge: No Stand-Alone Forms: [facility], Smoking Cessation Medications and DC Order Prescriptions: New tramadol 50 mg tablet 50 mg PO Q6H PRN (Reason: pain, moderate) Qty: 30 0RF oxycodone 5 mg tablet 5 mg PO Q6H PRN (Reason: pain) Qty: 30 0RF Continued magnesium 500 mg Tablet 500 mg PO QAM niacin [Niaspan Extended-Release] 500 mg Tablet Extended Release 24 Hr 500 mg PO HS pantoprazole 40 mg Tablet,Delayed Release (Dr/Ec) 40 mg PO QAM albuterol sulfate 90 mcg/actuation Hfa Aerosol Inhaler 1 inh INHALATION Q4H PRN (Reason: sob) pregabalin [Lyrica] 25 mg Capsule 25 mg PO TID cholecalciferol (vitamin D3) [Vitamin D3] 50 mcg (2,000 unit) Capsule 50 mcg PO QAM atorvastatin 40 mg Tablet 40 mg PO QAM capecitabine [Xeloda] 500 mg Tablet 2,000 mg PO BID Rx Instructions: takes meds for 2 weeks and then off for 1 week hydrocodone-acetaminophen 10-325 mg Tablet 1 tab PO QID ondansetron 8 mg Tablet,Disintegrating 8 mg PO QAM levothyroxine 50 mcg Tablet 50 mcg PO QAM Patient Comments: takes with 200mcg to equal 250mcg every am docusate sodium [Colace] 100 mg Capsule 100 mg PO QAM levothyroxine 200 mcg Tablet 200 mcg PO QAM Patient Comments: takes with 50mcg every am cyclobenzaprine 5 mg Tablet 10 mg PO Q8 Anoro Ellipta 62.5-25 mcg/actuation Blister With Device 1 inh INHALATION QAM guaifenesin [Mucinex] 600 mg Tablet Extended Release 12hr 600 mg PO Q12H sertraline 150 mg Capsule 150 mg PO QAM doxylamine succinate 25 mg Tablet 25 mg PO HS PRN (Reason: Insomnia) oxycodone 5 mg tablet 5 mg PO Q6H PRN (Reason: pain) Qty: 30 0RF oxycodone 5 mg tablet 5 mg PO Q6H PRN (Reason: pain) Qty: 30 0RF Discharge Orders: Discharge Order (Routine); Ordered 03/15/23 Ordered By: Candido Booker Admission Data Admit Date/Time: 03/12/23 12:56 Attending Provider: Candido Booker Admit Provider: Candido Booker Primary Care Provider: Susana Carey Other Providers: Anahi Ramesh
--- NOTE | 2023-03-15 10:30 | Hospitalist Progress Note ---
Date of Service March 15, 2023 Assessment & Plan (1) S/P spinal surgery: Plan: Post op management of L3- L5 revision decompression and fusion, kyphoplasty, cementing of hardware, extending hardware to pelvis by Dr. Booker Pain management. Nausea control. 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 (6) Tobacco abuse: Plan: Cessation counseling (7) Obesity: (8) Lung cancer: (9) Breast cancer: Plan Thank you for this consultation Patient to be discharged today per primary service Admission and Anticipated Discharge Date Admission Date: March 12, 2023 Subjective Patient evaluated at bedside Reports feeling well overall and eager to get home Denies any chest pain, palpitations or other acute concerns Reports BM and flatus Physical Exam Constitutional: WD/WN, vitals as above Respiratory: normal respiratory effort, lungs clear to auscultation Cardiovascular: RRR, no murmur, no edema Gastrointestinal (Abdomen): normal bowel sounds, soft, nontender, no hepatosplenomegaly Results & Data Results & Data Vital Signs (Past 12 Hours) Vital Signs Temp Pulse Resp BP Pulse Ox O2 Del Method 03/15/23 07:18 36.7 C 76 18 126/66 95 Room Air 03/14/23 22:43 36.7 C 73 18 119/72 96 Room Air Medications Administered Home Medications Medication Instructions Recorded Confirmed Last Taken albuterol sulfate 90 mcg/actuation 1 inh inhalation Q4H PRN sob 06/15/21 03/12/23 07/26/21 03:30 aerosol inhaler cholecalciferol (vitamin D3) 50 50 mcg PO QAM 06/15/21 03/12/23 03/11/23 09:00 mcg (2,000 unit) capsule (Vitamin D3) magnesium 500 mg tablet 500 mg PO QAM 06/15/21 03/12/23 03/11/23 09:00 niacin 500 mg tablet,extended 500 mg PO HS 06/15/21 03/12/23 03/11/23 22:00 release 24 hr (Niaspan) pantoprazole 40 mg tablet,delayed 40 mg PO QAM 0403/12/23 03/11/23 09:00 release pregabalin 25 mg capsule (Lyrica) 25 mg PO TID 06/15/21 03/12/23 03/11/23 22:00 atorvastatin 40 mg tablet 40 mg PO QAM 12/08/22 03/12/23 03/11/23 09:00 capecitabine 500 mg tablet (Xeloda) 2,000 mg PO BID 12/08/22 03/12/23 03/12/23 08:30 cyclobenzaprine 5 mg tablet 10 mg PO Q8 12/08/22 03/12/23 03/11/23 09:00 docusate sodium 100 mg capsule 100 mg PO QAM 12/08/22 03/12/23 03/11/23 09:00 (Colace) guaifenesin 600 mg tablet, 600 mg PO Q12H 12/08/22 03/12/23 03/11/23 22:00 extended release 12 hr (Mucinex) hydrocodone 10 mg-acetaminophen 1 tab PO QID 12/08/22 03/12/23 03/12/23 07:00 325 mg tablet levothyroxine 200 mcg tablet 200 mcg PO QAM 12/08/22 03/12/23 03/11/23 09:00 levothyroxine 50 mcg tablet 50 mcg PO QAM 12/08/22 03/12/23 03/11/23 09:00 ondansetron 8 mg disintegrating 8 mg PO QA 12/08/22 03/12/23 03/11/23 09:00 tablet sertraline 150 mg capsule 150 mg PO QAM 12/08/22 03/12/23 03/11/23 09:00 umeclidinium 62.5 mcg-vilanterol 1 inh inhalation QA 12/08/22 03/12/23 12/13/22 09:00 25 mcg/actuation powdr for inhalation (Anoro Ellipta) doxylamine succinate 25 mg tablet 25 mg PO HS PRN Insomnia 12/14/22 03/12/23 03/11/23 22:00 oxycodone 5 mg tablet 5 mg PO Q6H PRN pain #30 tabs 12/15/22 03/12/23 Unknown oxycodone 5 mg tablet 5 mg PO Q6H PRN pain #30 tabs 12/18/22 03/12/23 Unknown oxycodone 5 mg tablet 5 mg PO Q6H PRN pain #30 tabs 03/13/23 Unknown tramadol 50 mg tablet 50 mg PO Q6H PRN pain, moderate 03/13/23 Unknown #30 tabs Active Medications Generic Name Dose Route Start Last Admin Trade Name Freq PRN Reason Stop Dose Admin Atorvastatin Calcium 40 mg 03/13/23 09:00 03/15/23 07:54 Atorvastatin 40 Mg Tab PO 04/12/23 08:59 40 mg QAM HALEY Administration Guaifenesin 600 mg 03/12/23 21:00 03/15/23 07:53 Guaifenesin 600 Mg Tabcr PO 04/11/23 20:59 600 mg Q12 HALEY Administration Hydromorphone HCl 1 mg 03/12/23 14:40 03/14/23 23:19 Hydromorphone Inj 1 Mg/Ml Syringe IV 03/26/23 14:39 1 mg Q3H PRN Administration SEVERE Pain (Scale 7,8,9,10) Levothyroxine Sodium 50 mcg 03/13/23 06:30 03/15/23 05:08 Levothyroxine Sodium 50 Mcg Tablet PO 04/12/23 06:29 50 mcg DAILYBB HALEY Administration Levothyroxine Sodium 200 mcg 03/13/23 06:30 03/15/23 05:08 Levothyroxine Sodium 200 Mcg Tablet PO 04/12/23 06:29 200 mcg DAILYBB HALEY Administration Lorazepam 0.5 mg 03/12/23 14:40 03/13/23 22:57 Lorazepam 0.5 Mg Tab PO 04/11/23 14:39 0.5 mg Q8H PRN Administration Sedation/Anxiety Miscellaneous 1 each 03/12/23 16:00 03/15/23 07:54 Order Awaiting Action: Doxylamine N/A 04/11/23 15:59 Not Given QS HALEY Niacin 500 mg 03/12/23 21:00 03/14/23 20:31 Niacin Extended Rel 500 Mg Tabcr PO 04/11/23 20:59 500 mg HS HALEY Administration Ondansetron HCl 4 mg 03/12/23 14:40 03/13/23 00:09 Ondansetron Inj 2 Mg/Ml 2 Ml Vial IV 04/11/23 14:39 4 mg Q6H PRN Administration Nausea &/or Vomiting Oxycodone HCl 5 - 10 mg 03/12/23 14:40 03/15/23 05:06 Oxycodone Hcl Ir 5 Mg Tab (Immediate Release) PO 03/26/23 14:39 10 mg Q4H PRN Administration Pain & Pre PT Pantoprazole Sodium 40 mg 03/13/23 09:00 03/15/23 07:53 Pantoprazole 40 Mg Tab PO 04/12/23 08:59 40 mg QAM HALEY Administration Polyethylene Glycol 17 gm 03/13/23 06:00 03/15/23 05:05 Polyethylene (Miralax) 17 Gm Pack PO 04/12/23 05:59 Not Given Q6 HALEY Pregabalin 25 mg 03/12/23 15:00 03/15/23 07:58 Pregabalin 25 Mg Cap PO 04/11/23 14:59 25 mg TID HALEY Administration Senna/Docusate Sodium 2 tab 03/12/23 21:00 03/14/23 20:31 Docusate Sodium/Senna 50/8.6mg Tab PO 04/11/23 20:59 2 tab HS HALEY Administration Sertraline HCl 100 mg 03/13/23 09:00 03/15/23 07:54 Sertraline Hcl 100 Mg Tablet PO 04/12/23 08:59 100 mg QAM HALEY Administration Sertraline HCl 50 mg 03/13/23 09:00 03/15/23 07:54 Sertraline Hcl 50 Mg Tablet PO 04/12/23 08:59 50 mg QAM HALEY Administration Tramadol HCl 50 - 100 mg 03/12/23 14:40 03/15/23 07:24 Tramadol Hcl 50 Mg Tablet PO 04/11/23 14:39 100 mg Q4H PRN Administration Moderate-Severe pain & Pre PT Vitamin D 2,000 units 03/13/23 09:00 03/15/23 07:53 Cholecalciferol 1,000 Units 25 Mcg Tab PO 04/12/23 08:59 2,000 units QAM HALEY Administration
== END 2023-03-15 12:12 | disposition home or self-care (01) | DRG 460 ==
LOC: ASU 08:25 → 3E 12:56